=== PATIENT | male | born 1955 | race Caucasian/White ===

== ENCOUNTER 2023-05-21 05:30 | Inpatient (IN) | payer OTHER, SELFPAY ==
[2023-05-05 09:04] LABS: INR 1.04; PT 13.8 Sec (11.4-14.6)
[2023-05-05 09:05] LABS: APTT 29.8 Sec (23.4-35.0)
[2023-05-05 09:07] LABS: Urine Albumin Negative (Neg - Trace); Urine Bilirubin Negative (Negative); Urine Character Clear (Clear); Urine Color Yellow; Urine Glucose Negative (Negative); Urine Ketone Negative (Negative); Urine Leukocyte Negative (Negative); Urine Nitrite Negative (Negative); Urine Occult Blood Negative (Negative); Urine Specific Gravity 1.015 (<1.030); Urine Urobilinogen Negative (Neg - 1+)
[2023-05-05 09:09] LABS: % Basophils 0.3 % (0-2); % Eosinophils 2.2 % (0-6); % Immature Granulocytes 0.3 % (0-0.5); % Lymphocytes 24.9 % (20.5-51.1); % Monocytes 8.8 % (1.7-9.3); % Neutrophils 63.5 % (42.2-75.2); Absolute Eosinophils 0.2 10^3/uL (0-0.7); Absolute Lymphocytes 1.8 10^3/uL (1.2-3.4); Absolute Monocytes 0.6 10^3/uL (0.1-0.6); Absolute Neutrophils 4.5 10^3/uL (1.4-6.5); Hematocrit 38.1 % (39.0-52.0); Hemoglobin 12.8 g/dL (13.0-18.0); Mean Corp Hgb Conc. 33.6 g/dL (33.0-37.0); Mean Corpuscular Hgb 31.3 pg (27.0-31.0); Mean Corpuscular Volume 93.2 fL (80.0-94.0); Mean Platelet Volume 10.2 fL (7.4-10.4); Nucleated Red Blood Cells % 0 % (-); Platelet Count 308 10^3/uL (130-400); Red Blood Cell Count 4.09 10^6/uL (4.70-6.10); Red Cell Dist. Width 13.7 % (11.5-14.5); White Blood Cell Count 7.2 10^3/uL (4.8-10.8)
[2023-05-05 09:20] LABS: ALT (SGPT) 26 U/L (0-50); AST (SGOT) 28 U/L (17-59); Albumin 4.4 g/dl (3.5-5.0); Alkaline Phosphatase 39 U/L (38-126); Blood Urea Nitrogen 33 mg/dl (9-20); Calcium 9.9 mg/dl (8.4-10.2); Carbon Dioxide 26 mmol/L (22-30); Chloride 105 mmol/L (98-107); Direct Bilirubin 0.6 mg/dl (0.0-0.4); Glucose 124 mg/dl (70-99); Potassium 4.8 mmol/L (3.5-5.1); Sodium 136 mmol/L (135-145); Total Bilirubin 0.7 mg/dl (0.2-1.3); eGFR 46.64
--- NOTE | 2023-05-05 09:53 | CM ---
Chart reviewed. Met with the patient and in PAT. Reviewed preoperative and postoperative instructions and restrictions, along with showering guidelines. Gave patient 2 soaps. Patient is agreeable to a home visit by CT Transitional RN.
Patient is independent of ADLS, lives with his in a 2 STH, 2 IOANA, 0 DME. Patient uses [facility] in [place]. Plan is for the patient to return home with CT Transitional RN.
[2023-05-05 10:00] LABS: Glycohemoglobin (HgbA1c) 6.3 % (4.0-5.6)
[2023-05-05 11:24] VITALS: BMI 34.4
[2023-05-21] VITALS (8 sets, daily range): BP systolic 77–157; BP diastolic 48–68; BMI 33.8
[2023-05-21] MEDS: PROTONIX 40 MG PO (06:09)
[2023-05-21] MEDS: MAGNESIUM OXIDE 500 MG PO (06:10)
[2023-05-21] MEDS: BACTROBAN 2% OINTMENT 1 APPLIC NASAL ×2 (06:10→21:43)
--- NOTE | 2023-05-21 08:30 | PTCARENOTE ---
0815, pt transfered to [facility] in bed. Wedding ring removed by CT PA prior and given to patients . Consent on chart. Pre op meds administered by retail shift leader RN previously.
--- NOTE | 2023-05-21 09:02 | CM ---
Patient in OR today for planned CABG.
Reviewed initial assessment. Pt. resides in a private, 2 story home with spouse. Functionally, patient is indep. w/ ADLs, mobility.
Anticipated DC plan is for home with CT Transitional Care RN.
Will follow for DC planning needs.
[2023-05-21 09:20] LABS: ACT+ - POC 87 Seconds (82-134)
[2023-05-21 09:23] LABS: B.E. - POC -2.4 mmol/L; Glucose - POC 89 mg/dl (65-99); HCO3 - POC 23 mmol/L (21-29); Hematocrit - POC 36 % PCV (42-52); Hemodilution- POC No; Hemoglobin Calculated - POC 12.4; Ionized Calcium - POC 1.28 mmol/L (1.12-1.27); O2 Saturation %Calculated-POC 95.4 5 (92-96); PCO2 - POC 43 mmHg (35-45); PO2 - POC 83 mmHg (80-100); Potassium - POC 4.2 mmol/L (3.6-5.0); Sodium - POC 142 mmol/L (135-145); pH - POC 7.34 (7.35-7.45)
[2023-05-21 09:31] LABS: Urine Albumin Negative (Neg - Trace); Urine Bilirubin Negative (Negative); Urine Character Slightly Cloudy (Clear); Urine Color Yellow; Urine Glucose Negative (Negative); Urine Ketone Negative (Negative); Urine Leukocyte Negative (Negative); Urine Nitrite Negative (Negative); Urine Occult Blood Negative (Negative); Urine Specific Gravity 1.015 (<1.030); Urine Urobilinogen Negative (Neg - 1+)
[2023-05-21] MEDS: NSS 500 IV (12:00)
[2023-05-21 12:14] LABS: ACT+ - POC 503 Seconds (82-134)
[2023-05-21 12:51] LABS: B.E. - POC -0.7 mmol/L; Glucose - POC 92 mg/dl (65-99); HCO3 - POC 25 mmol/L (21-29); Hematocrit - POC 29 % PCV (42-52); Hemodilution- POC Yes; Hemoglobin Calculated - POC 9.8; Ionized Calcium - POC 1.12 mmol/L (1.12-1.27); PCO2 - POC 45 mmHg (35-45); PO2 - POC 382 mmHg (80-100); Potassium - POC 5.2 mmol/L (3.6-5.0); Sodium - POC 138 mmol/L (135-145); pH - POC 7.35 (7.35-7.45)
[2023-05-21 12:51] LABS: ACT+ - POC 492 Seconds (82-134)
[2023-05-21 13:07] LABS: ACT+ - POC 571 Seconds (82-134)
[2023-05-21 13:19] LABS: B.E. - POC -1.8 mmol/L; Glucose - POC 104 mg/dl (65-99); HCO3 - POC 23 mmol/L (21-29); Hematocrit - POC 29 % PCV (42-52); Hemodilution- POC Yes; Hemoglobin Calculated - POC 9.9; Ionized Calcium - POC 1.14 mmol/L (1.12-1.27); PCO2 - POC 41 mmHg (35-45); PO2 - POC 431 mmHg (80-100); Sodium - POC 138 mmol/L (135-145); pH - POC 7.37 (7.35-7.45)
[2023-05-21 13:21] LABS: ACT+ - POC 504 Seconds (82-134)
[2023-05-21 13:50] LABS: B.E. - POC -2.5 mmol/L; Glucose - POC 114 mg/dl (65-99); HCO3 - POC 22 mmol/L (21-29); Hematocrit - POC 29 % PCV (42-52); Hemodilution- POC Yes; Hemoglobin Calculated - POC 9.7; Ionized Calcium - POC 1.13 mmol/L (1.12-1.27); O2 Saturation %Calculated-POC 99.9 5 (92-96); PCO2 - POC 37 mmHg (35-45); PO2 - POC 338 mmHg (80-100); Potassium - POC 5.1 mmol/L (3.6-5.0); Sodium - POC 137 mmol/L (135-145); pH - POC 7.38 (7.35-7.45)
[2023-05-21 13:52] LABS: ACT+ - POC 492 Seconds (82-134)
[2023-05-21 14:13] LABS: ACT+ - POC 595 Seconds (82-134)
[2023-05-21 14:24] LABS: B.E. - POC -4.6 mmol/L; Glucose - POC 134 mg/dl (65-99); HCO3 - POC 21 mmol/L (21-29); Hematocrit - POC 28 % PCV (42-52); Hemodilution- POC Yes; Hemoglobin Calculated - POC 9.5; Ionized Calcium - POC 1.11 mmol/L (1.12-1.27); O2 Saturation %Calculated-POC 99.9 5 (92-96); PCO2 - POC 40 mmHg (35-45); PO2 - POC 378 mmHg (80-100); Sodium - POC 138 mmol/L (135-145); pH - POC 7.33 (7.35-7.45)
[2023-05-21 14:26] LABS: ACT+ - POC 576 Seconds (82-134)
[2023-05-21 15:29] LABS: ACT+ - POC 96 Seconds (82-134)
[2023-05-21 15:31] LABS: B.E. - POC -7.7 mmol/L; Glucose - POC 108 mg/dl (65-99); HCO3 - POC 19 mmol/L (21-29); Hematocrit - POC 28 % PCV (42-52); Hemodilution- POC Yes; Hemoglobin Calculated - POC 9.5; Ionized Calcium - POC 1.21 mmol/L (1.12-1.27); O2 Saturation %Calculated-POC 99.7 5 (92-96); PCO2 - POC 45 mmHg (35-45); PO2 - POC 226 mmHg (80-100); Potassium - POC 4.2 mmol/L (3.6-5.0); Sodium - POC 142 mmol/L (135-145); pH - POC 7.24 (7.35-7.45)
--- NOTE | 2023-05-21 16:13 | CON.INTV ---
Consultation
Consultation Request
Date/Time Consultation Requested: 05-21-2023
Date/Time Consultation Performed: 05-21-2023 1610
Requesting Provider: Sarika Boyer PA-C
Performing Provider: Dr. Doe
Reason for Consultation: s/p CABG
Medical History
-
Chief Complaint: Elective CABG
History of Present Illness:
67-year-old male never smoker with a past medical history of DVT s/p IVC filter with subsequent removal 15 years later (2019), CAD s/p coronary stents, CKD, DM type II, venous insufficiency and hyperlipidemia who presents with elective CABG.
Patient follows with Dr. Nichols as an outpatient, last visit on 04/29/2023. Patient endorses fatigue with reduced exercise tolerance. After his office visit, a CT chest was done preoperatively which showed severe coronary artery calcifications with
calcification along the aorta without an aortic aneurysm. Carotid ultrasound showed less than 50% stenosis in the right and left ICA. DVT study done on 05/13/2023 showed a chronic nonocclusive DVT in the right popliteal and left femoral veins.
Patient came in today and underwent CABG x 4. Postoperative PHOEBE showed normal biventricular function without regional WMA and no significant valvular pathology. Patient transferred to the CVICU in stable condition with no immediate complications
seen. Hog Ringer has pulmonary service now consulted for additional recommendations.
When I saw the patient he was still intubated, on SIMV 16/600/40%/5, breathing at 16bpm, VTe: 541cc and PIP 24. BP via left radial A-line was 113/56, PAP 33/19, O2 saturation 94%. He was on Cardene drip at 2.5 mg/h, and Precedex drip at
0.7mcg/kg/hr. he has 2 mediastinal chest tubes and a right and a left pleural chest tube. He awakens to verbal stimuli. He is in no acute distress.
PMHx: DM type II, hypertension, history of DVT, CKD III, hepatic steatosis, GERD, hyperlipidemia, venous insufficiency and chronic back pain
PSHx: Cholecystectomy, s/p coronary stents (2016), bilateral L4 TFESI No SED, IVC filter placed in 2004 -removed 2019; basal cell carcinoma removal
Past Medical History
Past Medical History: Other (Above as per HPI)
Past Surgical History: Other (Above as per HPI)
Social History
Tobacco: Non-smoker
Alcohol: Occasional
Drug: None
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
Family History
Family History: CAD (Father, mother and brothers x 2) and Cancer (Brother: Lung cancer)
Allergies / Home Medications
Allergies
Allergy/AdvReac Type Severity Reaction Status Date / Time
atenolol Allergy Intermediate dizziness, Verified 04/30/23 10:11
'ROOM
SPINNING'
Beta-Blockers Allergy dizziness Verified 04/30/23 10:11
(Beta-Adrenergic Bloc
Home Medications
Medication Instructions Recorded Confirmed Last Taken Type
fenofibric acid (choline) 135 mg 135 mg PO DAILY High Cholesterol 09/01/14 05/21/23 1 Day Ago History
capsule,delayed release ~05/20/23
nitroglycerin 0.4 mg sublingual 0.4 mg sublingual [id number] PRN 09/01/14 05/21/23 04/20/16 Rx
tablet chest pain #30 tabs
coenzyme Q10 200 mg capsule (Co 200 mg PO DAILY Supplement 06/04/16 05/21/23 1 Day Ago History
Q-10) ~05/20/23
insulin degludec 100 unit/mL (3 72 unit SQ DAILY Diabetes 06/04/16 05/21/23 1 Day Ago History
mL) subcutaneous pen (Tresiba ~05/20/23
FlexTouch U-100 insulin)
magnesium 250 mg tablet 250 mg PO DAILY Electrolyte 06/04/16 05/21/23 1 Day Ago History
Repletion ~05/20/23
lfozdvzg-wd-ahtck 300 mcg-K 60 1 ea PO DAILY Supplement 06/04/16 05/21/23 1 Day Ago History
mcg-lycop 600 mcg-lutein 300 mcg ~05/20/23
tablet (Centrum Anjel Men)
pioglitazone 30 mg tablet 30 mg PO DAILY Diabetes 06/04/16 05/21/23 1 Day Ago History
~05/20/23
insulin aspart U-100 100 unit/mL 6 unit SC AC Diabetes ##0 06/23/18 05/21/23 1 Day Ago History
(3 mL) subcutaneous pen (Novolog ~05/20/23
FlexPen U-100 Insulin aspart)
nifedipine 90 mg tablet,extended 90 mg PO DAILY Blood Pressure ##0 06/23/18 05/21/23 1 Day Ago History
release 24 hr ~05/20/23
apixaban 5 mg tablet (Eliquis) 5 mg PO BID Blood Clot 04/22/23 05/21/23 3 Days Ago History
Prevention/Tx ~05/18/23
lisinopril 20 1 tab PO BID Blood Pressure 04/22/23 05/21/23 05/18/23 20:00 History
mg-hydrochlorothiazide 12.5 mg
tablet
rosuvastatin 40 mg tablet 40 mg PO QPM High Cholesterol 04/22/23 05/21/23 05/20/23 20:00 History
semaglutide 1 mg/dose (4 mg/3 mL) 1 mg SC HAIRSTON Diabetes 04/22/23 05/21/23 05/17/23 08:00 History
subcutaneous pen injector (Ozempic)
vitamin E 400 unit tablet 800 unit PO DAILY Supplement 04/22/23 05/21/23 1 Day Ago History
~05/20/23
aspirin 81 mg tablet,delayed 81 mg PO DAILY Blood Clot 05/21/23 05/21/23 1 Day Ago History
release Prevention/Tx ~05/20/23
isosorbide mononitrate 30 mg 30 mg PO DAILY Blood Pressure 05/21/23 05/21/23 1 Day Ago History
tablet,extended release 24 hr ~05/20/23
metformin 1,000 mg tablet 1,000 mg PO DAILY Diabetes 05/21/23 05/21/23 05/19/23 20:00 History
pantoprazole 40 mg tablet,delayed 40 mg PO DAILY Gastrointestinal 05/21/23 05/21/23 1 Day Ago History
release Issue ~05/20/23
Review of Systems
-
Unable to Obtain full review of systems at this time due to: Patient Intubation
Vitals / Labs / Diagnostic Testing
Vital Signs
Temp Pulse Resp BP Pulse Ox
97.6 F 88 16 157/66 99
05/21/23 05:59 05/21/23 05:59 05/21/23 05:59 05/21/23 05:59 05/21/23 05:59
Diagnostic Testing:
Physical Exam
-
HEENT: Normocephalic and Anicteric
Cardiovascular: S1/S2 and Peripheral Edema (negative)
Respiratory: Wheeze (Negative), Rhonchi (Negative) and Other (Mechanical breath sounds bilaterally)
GI: Soft, Non Distended and Non Tender
Neurology: Tremors (Negative) and Other (Sedated, awakens to stimuli)
Skin: Warm, Dry and Other (chronic venous stasis dermatitis seen mainly in RLE)
General: Other (Sedated on mechanical ventilation)
Assessment
-
Assessment: 67-year-old male never smoker with a past medical history of DVT s/p IVC filter with subsequent removal 15 years later (2019), CAD s/p coronary stents, CKD, DM type II, venous insufficiency and hyperlipidemia who presents with elective
CABG. Patient follows with Dr. Nichols as an outpatient, last visit on 04/29/2023. Patient endorses fatigue with reduced exercise tolerance. After his office visit, a CT chest was done preoperatively which showed severe coronary artery
calcifications with calcification along the aorta without an aortic aneurysm. Carotid ultrasound showed less than 50% stenosis in the right and left ICA. DVT study done on 05/13/2023 showed a chronic nonocclusive DVT in the right popliteal and left
femoral veins. Patient came in today and underwent CABG x 4. Postoperative PHOEBE showed normal biventricular function without regional WMA and no significant valvular pathology. Patient transferred to the CVICU in stable condition with no immediate
complications seen. Hog Ringer has pulmonary service now consulted for additional recommendations.
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
Impression:
#Multivessel CAD s/p multiple prior stents now with CABG x 4 (POD #0)
#Acute on chronic anemia (baseline Hb: Approximately 13)
#Chronic DVT bilaterally -right popliteal and left femoral vein
#CKD
Plan:
Ventilator settings reviewed --> if PTX enlarges then may need to drop PEEP to zero. Monitor for air leak in chest tube
FiO2 will be weaned --> may want to keep elevated to help resorb PTX, at least until tomorrow's CXR is done
Minute ventilation will be adjusted
Arterial blood gases will be monitored
Spontaneous breathing trial will be attempted with hopeful extubation after anesthesia/sedation wear off
Pulmonary artery catheter parameters will be followed
Pressors/antihypertensive/inotropes/diuretics will be provided as needed
Monitor chest tube output
Monitor hemoglobin
Monitor platelet count and coags
Transfuse blood product if needed
CT surgery following chest tubes
Monitor blood sugar
Insulin drip per protocol
Aspiration precautions
VAP prevention protocol
DVT prophylaxis
Early nutrition
Early mobilization
Critical care statement (patient seen and evaluated on 05/21/2023): A total of 46 minutes of critical care time was provided for this patient today. This includes management of ventilator, spontaneous breathing trial, arterial blood gases, pressors,
of unstable vital signs, evaluation of the patient at bedside, reviewing the patient's pertinent medical records including radiographs, microbiology, laboratory evaluations, and discussion with primary team and critical care nursing.
Data:
CXR 05-21-2023:
1. � Endotracheal tube, bilateral pleural chest tubes, and a pulmonary arterial catheter in place following CABG surgery.
2. � Suspected SMALL RIGHT APICAL PNEUMOTHORAX (less than 10% of the lung volume).
3. � Mild to moderate postoperative atelectasis in the lower lobes.
4. � Mild to moderate elevation of the right hemidiaphragm.
--- NOTE | 2023-05-21 16:21 | W.CVOR.SURPR ---
CVOR Surgeon Immed Pre Op
-
I have examined this patient prior to performance of the scheduled procedure.
The patient's condition is unchanged from the time of the dictated/written History and
Physical and the patient is able to undergo the scheduled procedure.
--- NOTE | 2023-05-21 16:22 | W.IMMPOSTOP ---
Addendum entered and electronically signed by Keyur Nichols MD 05/21/23 17:38:
Dictated: [id number]
Original Note:
Surgical Immed Post Op Note
-
CARDIAC SURGERY OPERATIVE NOTE:
Preoperative Dx:
Multivessel CAD s/p multiple prior stents
Postoperative Dx:
Same
Procedures:
1) Median sternotomy
2) Takedown of GILLIAN (narrowed pedicle)
3) Takedown of ALVARO (skeletonized)
4) Endoscopic w/ conversion to open LLE GSV harvest/prep
5) CABG x 4 (GILLIAN to D1, ALVARO to R PLB, sGSV to OM1/OM2)
Surgeon:
Keyur Nichols M.D.
Assistants:
Sarika Boyer P.A.-C.; senior underwriting assistant throughout, [id number] harvest of LLE GSV
Stephie Colvin-C.; assisted w/ LLE GSV harvest/prep; closure of LLE incisions
Anesthesia:
Abiodun Ojeda M.D. and Davis PhillipsN.Merry.
Perfusion:
Selma Ahn C.C.P. and Katy Anderson CSawyerC.P.
XC: 118min, CPB: 161min
Findings:
GILLIAN was healthy appearing conduit w/ very brisk blood flow (ELD 3.0mm); thin walled
ALVARO was healthy appearing conduit w/ very brisk blood flow (ELD 3.0mm); thin walled
GSV was largely a poor conduit; there was a reasonable length of satisfactory vein to accomplish the grafts to the OM branches in sequential fashion, and a lower quality segment that may have be acceptable for the D1 bypass
The LAD was visible on the epicardial surface. The two prior LAD stents were visible through the wall of the vessel. The segment of LAD between the stents (~1cm) was profoundly calcified and not amenable to bypass, the apical LAD was likewise
profoundly calcified and not amenable to bypass
The D1 was visible on the epicardial surface. The prior D1 stent was visible through the wall of the vessel. The vessel distal to the stent had moderately dense, scattered calcifications. A spot amenable to bypass was able to be identified. ELD
at coronary arteriotomy was 1.75mm
OM1 and OM2 were both visible on the epicardial surface. These vessels both had scattered calcifications, but were both very reasonable surgical targets w/ ELD 2.25mm and 2.75mm respectively.
The distal RCA proximal and distal to the crux was circumferentially calcified and not amenable to bypass. The PDA was a small vessel (est. 1.25mm or less). The R PLB was a reasonable sized vessel w/ moderated dense scattered calcifications. It
had an ELD of 1.65mm.
The ALVARO was brought through a lateral pericardiotomy & reached the RPLB in a tension free manner
On initial removal of cross-clamp/inspection of distal coronary targets, there was new bleeding at the ALVARO-RPLB anastomosis. I attempted to place one additional suture that resulted in improved, but not ideal, hemostasis. Given that the
anastomosis was hemostatic intially, I opted to re-establish cardioplegic arrest, takedown & redo this anastomosis. On inspection a anastomotic suture had torn through the RPLB and the ALVARO. I extended the arteriotomy slightly, and resected the
torn section of ALVARO. I re-performed the anastomosis and was quite satisfied with its completed appearance.
POST-PHOEBE: Normal biventricular function w/o RWMA. No sig valvular pathology
Implants:
7 sternal wires
Sternal 'X' plate x 1
Sternal 'square' plates x 2
8 - 14mm screws
4 - 12mm screws
4 - 10mm screws
CT x 4 (B/L pleural, inferior mediastinal, superior mediastinal)
Epicardial V-wire x 1
Complications:
No significant complications
Transfusions:
None
Condition:
72 sinus (ST 0.5/0.2). 111/62. 46/29. CVP: 24. CO/CI: 5.4/2.2. 99%
GTTS: precedex 0.7, insulin 0.5
Stable/guarded to CVICU
[2023-05-21] MEDS: STERILE WATER FOR INJECTION 16 ML IV ×2 (16:45)
[2023-05-21] MEDS: ZINACEF 1500 MG IV ×2 (16:45)
--- NOTE | 2023-05-21 16:45 | PTCARENOTE ---
CABG x 4 JOSEPH/DELICIA/Left leg svg. 1st call 1545. No blood products. Temp epicardial v wire to medtronic box. Usual lines. chest tube x 4 (2 meds/R and L pleural) Insulin gtt/precedex. Out of cvor at 1645. No blood product given. Cardene at 2.5 to 5.
NSR with 1st degree avb. V wire for backup 40bpm/10ma. See flowrecord for remaining assessments.
[2023-05-21 16:53] LABS: Glucose - Point of Care 116 mg/dl (70-99)
[2023-05-21 17:06] LABS: B.E. -2.9 mmol/L; Ionized Calcium 1.22 mMOL/L (1.15-1.33); O2 Saturation % 98.2 % (94-98); PCO2 51 mmHg (35-48); PO2 99 mmHg (83-108); Potassium 4.9 mMOL/L (3.5-5.1); Sodium 139 mMOL/L (136-145); pH 7.28 (7.35-7.45)
[2023-05-21 17:09] LABS: Hematocrit 26.1 % (39.0-52.0); Hemoglobin 9.2 g/dL (13.0-18.0); Platelet Count 110 10^3/uL (130-400)
--- NOTE | 2023-05-21 17:15 | PTCARENOTE ---
[place], CT surgery handle machine operator, aware of respiratory acidosis on initial abg: simv RATE INCREASED FROM 12 TO 16.
[2023-05-21 17:17] LABS: APTT 29.4 Sec (23.4-35.0); INR 1.45; PT 17.9 Sec (11.4-14.6)
[2023-05-21 17:24] LABS: Blood Urea Nitrogen 25 mg/dl (9-20); Estimated Creatinine Clearance 69 ml/min; Glucose 106 mg/dl (70-99); Magnesium 3.5 mg/dl (1.6-2.3)
--- NOTE | 2023-05-21 17:48 | W.PN.CD ---
Addendum entered and electronically signed by Jesus Cochran MD 05/21/23 18:02:
I saw and examined the patient.
The ANESTHESIA TECH's note was reviewed and I agree with the note.
post op patietn remains vented. Otherwise stable. In NSR
- continue post op care
Original Note:
Today's Communication / Plan
-
Post-op monitoring and care with weaning of drips and vent as tolerated per CT surgery/CVIXU protocol
Impression / Plan
-
67 y/o male (patient of Dr. Chen) with HTN, HLD, DM2, DVT/PE on Eliquis, and Multivessel CAD (with history of stenting) who is now s/ CABG.
Multivessel CAD:
-CABG x 4 (GILLIAN to D1, ALVARO to R PLB, sGSV to OM1/OM2) with Dr. Nichols 05/21/23
-remains intubated/sedated
-on nicardipine drip
-da silva, CT's, pacer wire in place
-post-op EKG and tele show SR
-post-op CXR pending
-intra-op PHOEBE with normal LV function
-ASA, statin
HTN:
-monitor post-op
-currently on cardene as above
HLD:
-statin
DM:
-on insulin drip post-op per protocol
-monitor closely
Hx DVT/PE:
-hx of removed IVC filter per OP chart
-on Eliquis as OP; held for procedure- resume when safe per CT surgery
Physical Exam
Vital Signs/Labs
Vital Signs
Temp Pulse Resp BP Pulse Ox
97.2 F 75 12 157/66 96
05/21/23 17:31 05/21/23 17:31 05/21/23 17:31 05/21/23 05:59 05/21/23 17:31
05/20/23 05/21/23 05/22/23
06:59 06:59 06:59
Actual Weight 119.4 kg
05/21/23 16:55
PT 17.9 Sec (11.4-14.6) H 05/21/23 16:55
INR 1.45 05/21/23 16:55
APTT 29.4 Sec (23.4-35.0) 05/21/23 16:55
Magnesium 3.5 mg/dl (1.6-2.3) H 05/21/23 16:55
Physical Exam
Constitutional: No acute distress
Cardiovascular: Rhythm & rate is regular
Respiratory: Other (intubated/sedated)
Neuro/Psych: Other (intubated/sedated)
Other: Skin (midsternal incision dressing CDI)
Data Reviewed
-
Date of Service: May 21, 2023
EKG: Tracing Personally Visualized and interpreted (NSR) and Other (SR)
Labs: Labs Reviewed by me
[2023-05-21] MEDS: PRECEDEX 100 IV (18:09)
[2023-05-21 18:20] LABS: Glucose - Point of Care 121 mg/dl (70-99)
[2023-05-21] MEDS: NOVOLOG FLEXPEN SC ×2 (18:30→18:31)
[2023-05-21] MEDS: CRESTOR PO (18:32)
[2023-05-21] MEDS: PACERONE PO (18:32)
[2023-05-21] MEDS: TYLENOL PO ×2 (18:32→21:41)
[2023-05-21] MEDS: NEURONTIN PO (18:32)
[2023-05-21 18:45] LABS: B.E. -2.1 mmol/L; HCO3 23.2 mmol/L (21-28); O2 Saturation % 98.4 % (94-98); PCO2 41 mmHg (35-48); PO2 96 mmHg (83-108); pH 7.36 (7.35-7.45)
--- NOTE | 2023-05-21 19:05 | PTCARENOTE ---
Patient remains on ventilator simv setting and spontaneously awoke: nods head no to pain and nausea: follows simple commands and moves all extremities x 4 with equal strength bilaterally. PEARLA. NSR with 1st degree avb. Notified VALVE STEAMER to initiate a
CPAP wean trial: ABG at 1830 showed a fully corrected respiratory acidosis. CT surgical SOCIAL SCIENCE MANAGER aware of same.
[2023-05-21 19:31] LABS: Glucose - Point of Care 91 mg/dl (70-99)
--- NOTE | 2023-05-21 20:00 | PTCARENOTE ---
Pt received from anat RN. Walking rounds completed. Pt intubated s/p CVOR. Precedex infusing per protocol. CPOT score 0. RASS -1. Pt following commands. Able to move bilateral upper/lower extremities. 5/5 upper extremity strength equal
bilaterally. PERRLA/3mm. Pt SR on monitor w/ 1st degree heart block. HR 80s. Epicardial v-wires set to backup 40/10/2. [place] @48 cm. CVP 10-14. PAP 30's/15-20's. CVP and PAP zeroed and flushed. BP 100's/50s. Left radial a-line intact, zeroed and
flushed. CI 2.0, CO 4.88. Pt intubated. ETT 8.0, 23cm @ right lip. Pt breathing over vent. Transitioned to CPAP setting @1940 by respiratory therapist, 40%/5/5. POX 99%. Lung sounds audible anteriorly. Mediastinal CTx2 and R/L pleural CT's to -20
suction, no air leak/tidaling/crepitus, and output within normal limits. Temp sensing Pineda catheter draining yellow urine w/o difficulty. Abdomen soft/nontender. Hypoactive. Sternal Aquacel CDI. Left leg wrapped in ALEX bandage/ CDI. Left groin
intact, soft/nontender. Right 18 gauge PIV CDI w/ insulin infusing. Right IJ cordis w/ swan CDI. Glycemic protocol followed.
[2023-05-21 20:09] LABS: Glucose - Point of Care 99 mg/dl (70-99)
[2023-05-21 20:39] LABS: Hematocrit 27.4 % (39.0-52.0); Hemoglobin 9.7 g/dL (13.0-18.0); Platelet Count 134 10^3/uL (130-400)
[2023-05-21 20:40] LABS: Mixed Venous O2 Saturation 52.1 %
[2023-05-21 20:42] LABS: B.E. -2.1 mmol/L; HCO3 23.2 mmol/L (21-28); Ionized Calcium 1.21 mMOL/L (1.15-1.33); O2 Saturation % 98.5 % (94-98); PCO2 41 mmHg (35-48); PO2 102 mmHg (83-108); Potassium 5.5 mMOL/L (3.5-5.1); pH 7.36 (7.35-7.45)
[2023-05-21 20:58] LABS: Glucose - Point of Care 110 mg/dl (70-99)
[2023-05-21] MEDS: OFIRMEV 100 IV (21:38)
[2023-05-21] MEDS: SENOKOT-S PO (21:41)
[2023-05-21] MEDS: PEPCID 20 MG IV (21:48)
[2023-05-21] MEDS: NSS (PRESERVATIVE FREE) 8 ML IV (21:48)
--- NOTE | 2023-05-21 22:00 | PTCARENOTE ---
Repeat 4-hour labs drawn and sent. CPAP wean ABG drawn and sent. ABG results then reviewed w/ CVPA Scooter Diego. Order to extubate per [facility] Scooter Diego. Pt extubated by respiratory @2111 to 6 L NC w/o difficulty. POX 98%. Small, clear/thin
secretions suctioned after extubation. Pt c/o pain - see JUN.
[2023-05-21 22:16] LABS: Glucose - Point of Care 91 mg/dl (70-99)
[2023-05-21] MEDS: NEURONTIN 300 MG PO (22:38)
[2023-05-21] MEDS: PACERONE 200 MG PO (22:38)
[2023-05-21] MEDS: MORPHINE SULFATE 2 MG IV (23:15)
[2023-05-22] VITALS (30 sets, daily range): BP systolic 103–137; BP diastolic 44–117; PULSE 84; O2SAT 94; BMI 34.4
--- NOTE | 2023-05-22 | PTCARENOTE ---
Previous assessment unchanged. Pt SR on monitor w/ 1st degree heart block. HR 80s. BP 100-120's/ 40s. Levo infusing per protocol. Pt on 6 L NC. POX 98%. Mediastinal CTx2 and L/R pleural CT intact, to -20 suction, output within normal limits. Left
radial a-line maintained. Pineda catheter draining yellow urine w/o difficulty. Glycemic protocol followed. Pt c/o mild sternal pain - see MAR.
[2023-05-22 00:09] LABS: Glucose - Point of Care 97 mg/dl (70-99)
[2023-05-22] MEDS: ZINACEF 750 MG IV ×3 (00:32→16:10)
[2023-05-22] MEDS: STERILE WATER FOR INJECTION 8.30000000000000071 ML IV ×3 (00:32→16:11)
[2023-05-22] MEDS: ROXICODONE 10 MG PO ×3 (00:33→22:42)
[2023-05-22] MEDS: TYLENOL PO ×2 (00:33→16:11)
[2023-05-22] MEDS: LOW STRENGTH ASPIRIN 81 MG PO ×2 (00:39→08:02)
[2023-05-22 02:03] LABS: Glucose - Point of Care 106 mg/dl (70-99)
[2023-05-22] MEDS: TYLENOL 650 MG PO ×4 (03:49→20:31)
[2023-05-22 03:55] LABS: Glucose - Point of Care 85 mg/dl (70-99)
[2023-05-22 04:02] LABS: Hematocrit 28.3 % (39.0-52.0); Hemoglobin 9.5 g/dL (13.0-18.0); Mean Corp Hgb Conc. 33.6 g/dL (33.0-37.0); Mean Corpuscular Hgb 31.8 pg (27.0-31.0); Mean Corpuscular Volume 94.6 fL (80.0-94.0); Mean Platelet Volume 10.8 fL (7.4-10.4); Platelet Count 163 10^3/uL (130-400); Red Blood Cell Count 2.99 10^6/uL (4.70-6.10); Red Cell Dist. Width 13.5 % (11.5-14.5); White Blood Cell Count 9.5 10^3/uL (4.8-10.8)
--- NOTE | 2023-05-22 04:30 | PTCARENOTE ---
Previous assessment unchanged. Pt remains SR on monitor. HR 80s. BP 100-120s/40s. Levo infusing per protocol. Pt maintained on 6 L NC. POX 94-98%. Mediastinal CTx2 and right/left pleural CT's intact, to -20 suction, and output within normal limits.
Left radial a-line maintained. Pineda catheter draining yellow urine w/o difficulty. Glycemic protocol followed. Labs drawn and sent. EKG obtained. See MAR for medication administration.
[2023-05-22 04:44] LABS: Blood Urea Nitrogen 32 mg/dl (9-20); Calcium 8.3 mg/dl (8.4-10.2); Carbon Dioxide 21 mmol/L (22-30); Chloride 108 mmol/L (98-107); Estimated Creatinine Clearance 54 ml/min; Glucose 88 mg/dl (70-99); Potassium 4.7 mmol/L (3.5-5.1); Sodium 139 mmol/L (135-145); eGFR 40.49
--- NOTE | 2023-05-22 05:01 | W.PN.CT ---
Addendum entered and electronically signed by Keyur Nichols MD 05/22/23 13:25:
I saw and examined the patient.
The PA's note was reviewed and I agree with the note.
Comment:
POD#1 s/p CABG x 4 (GILLIAN to D1, sGSV to OM1/OM2, ALVARO to RPLB)
No major overnight events. Weaned OFF levo. Tm 100.3. 86 sinus. 116/46. 96% 2L. GTTS: insulin. CT: 2M: 150/230, 2P: 180/200. UO: 510+ overnight. Tolerating PO. Neuro: intact. 9.5>9.5<163; 32/1.8 (1.4; baseline 1.6). CXR: no sig
effusions, pulmonary edema.
- ASA/plavix, no BB (pt. intolerant), d/w cardiology ideal medication for BB/HR control, statin
- Will plan to D/C plavix and resume Eliquis on D/C
- Diuresis today
- Continue insulin gtt
- D/C SGC, D/C A-line, D/C da silva
- OOB/IS/ambulate later
Original Note:
Today's Communication / Plan
-
-pod #1
-no issues overnight
-CI 2.80, CO 6.83. Drips: Levo 2, Insulin 0.3
-CT output: 2 meds 150/230, 2 pleur 180/200 in 12/24 hrs
-deline
-continue insulin
-d/c Da Silva
-meds (ASA, Amio, Crestor). Consider Plavix. Not on BB d/t intolerance (dizziness)
-encourage IS, OOB
Assessment / Plan
-
-mv-CAD- s/p CABG x 4 (GILLIAN to D1, ALVARO to R PLB, sGSV to OM1/OM2); LLE EVH on 05/21/[address] Nichols, pod #1
-POST-PHOEBE: Normal biventricular function w/o RWMA.� No sig valvular pathology
-CAD - s/p LAD and Diag stents in 2014 and 2016
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
-IVC reconstruction with stent
-HTN/HLD
-DM II (HgA1c 6.3)
-CKD 3a (Cr 1.6 preop)
-Non-smoker
-Intolerance of BB (dizziness)
-Pre-existing 1st degree AVB
-Acute postop blood loss anemia - no active bleed, no transfusion
-Acute postop thrombocytopenia
-Acute postop atelectasis
Discussed patient care with: Nursing and Care Team
Subjective
Procedure
- s/p CABG x 4 (GILLIAN to D1, ALVARO to R PLB, sGSV to OM1/OM2); LLE EVH on 05/21/[address] Nichols
-
Date of Service: May 22, 2023
Objective Data
-
PT 17.9 Sec (11.4-14.6) H 05/21/23 16:55
INR 1.45 05/21/23 16:55
APTT 29.4 Sec (23.4-35.0) 05/21/23 16:55
Vital Signs
Vital Signs
Temp Pulse Resp BP Pulse Ox
100 F 84 16 111/47 95
05/22/23 01:00 05/22/23 01:00 05/22/23 01:00 05/21/23 22:38 05/22/23 01:00
CT Intake/Output/Weight
05/21/23 05/21/23 05/22/23
06:59 18:59 06:59
Intake Total 109.7 / 512.1 402.4 / 512.1
Output Total 175 / 825 650 / 825
Balance -65.3 / -312.9 -247.6 / -312.9
SaO2: 95
Physical Exam
-
General: Awake and AOx3
Cardiovascular: Regular rate & rhythm, No Murmurs and Rub
Respiratory: Decreased Breath Sounds
Sternum: Stable
Incision: Clean, Dry and Dressing Intact
Extremities: Other (trace foot edema b/l)
Data Reviewed
-
Lab Results: Results Reviewed
Medications: Active Meds Reviewed
Chest X-Ray: Report Reviewed and Image Reviewed
ECG: Report Reviewed and Image Reviewed
[2023-05-22 05:26] LABS: Glucose - Point of Care 87 mg/dl (70-99)
--- NOTE | 2023-05-22 05:45 | PTCARENOTE ---
Savage dc'd per CV[facility] order. Pt tolerated.
[2023-05-22 06:08] LABS: Glucose - Point of Care 100 mg/dl (70-99)
--- NOTE | 2023-05-22 06:30 | PTCARENOTE ---
Attempted to get pt OOB. Pt helped to edge of bed and to stand w/ assist x2. Pt stated he felt like 'he was going to pass out.' Pt helped back to bed. Vital signs stable.
[2023-05-22 06:58] LABS: Glucose - Point of Care 104 mg/dl (70-99)
--- NOTE | 2023-05-22 07:00 | PTCARENOTE ---
Bedside walking rounds report received. Patient seen on rounds resting in bed on 6L o2 per minute titrated down to 4l on rounds to maintain pulse ox sats > 90%. NSR with 1st degree avb on monitor. Temp epicardial v wire securd to medtronic box for
backup rate of 40bpm with an mA of 10. CT x 4 (2 meds/right and left pleural) to pleur evacs and -20cm wall suction. No air leak noted..Plan: DC left radial art line/dc da silva later this am. See flowrecord on remaining assessments
[2023-05-22] MEDS: DILAUDID 0.25 MG IV (07:54)
[2023-05-22] MEDS: BACTROBAN 2% OINTMENT 1 APPLIC NASAL ×2 (07:59→20:30)
[2023-05-22] MEDS: NOVOLOG FLEXPEN SC ×3 (07:59→18:18)
[2023-05-22] MEDS: NSS (PRESERVATIVE FREE) 8 ML IV ×2 (08:00→20:30)
[2023-05-22] MEDS: PEPCID 20 MG IV ×2 (08:01→20:30)
[2023-05-22] MEDS: NEURONTIN 300 MG PO ×3 (08:02→22:20)
[2023-05-22] MEDS: LASIX 40 MG IV (08:02)
[2023-05-22] MEDS: SENOKOT-S 1 TABLET PO ×2 (08:03→20:31)
[2023-05-22] MEDS: PACERONE 200 MG PO ×3 (08:03→22:20)
[2023-05-22] MEDS: KCL PO (08:04)
[2023-05-22 08:31] LABS: Glucose - Point of Care 112 mg/dl (70-99)
--- NOTE | 2023-05-22 08:38 | W.PN.CD ---
Today's Communication / Plan
-
-Extubated; clinically stable and doing relatively well.
-Remains in sinus rhythm on telemetry.
-Continue routine postoperative care as directed by CT Surgery.
Impression / Plan
-
Assessment/Plan:
67 y/o male (patient of Dr. Chen) with HTN, HLD, DM2, DVT/PE on Eliquis, and Multivessel CAD (with history of stenting) who is now s/ CABG.
Multivessel CAD:
-CABG x 4 (GILLIAN to D1, ALVARO to R PLB, sGSV to OM1/OM2) with Dr. Nichols 05/21/23
-Extubated; clinically stable and doing relatively well.
-Remains in sinus rhythm on telemetry.
-Continue routine postoperative care as directed by CT Surgery.
-Continue ASA and statin.
HTN:
-Controlled/stable.
-Continue current medication regimen.
HLD:
-Continue high-dose rosuvastatin.
DM:
-on insulin drip post-op per protocol
-monitor closely
Hx DVT/PE:
-hx of removed IVC filter per OP chart
-on Eliquis as OP; held for procedure- resume when safe per CT surgery
Subjective:
No major events overnight.
Physical Exam
Vital Signs/Labs
Vital Signs
Temp Pulse Resp BP Pulse Ox
99 F 78 16 122/67 94
05/22/23 06:00 05/22/23 08:20 05/22/23 07:00 05/22/23 08:00 05/22/23 08:20
05/21/23 05/22/23 05/23/23
06:59 06:59 06:59
Actual Weight 119.4 kg 121.5 kg
05/22/23 03:35
05/22/23 03:35
PT 17.9 Sec (11.4-14.6) H 05/21/23 16:55
INR 1.45 05/21/23 16:55
APTT 29.4 Sec (23.4-35.0) 05/21/23 16:55
Magnesium 3.0 mg/dl (1.6-2.3) H 05/22/23 03:35
Physical Exam
Constitutional: No acute distress and Comfortable
EENT: Anicteric
Cardiovascular: Rhythm & rate is regular, Pedal edema is absent, Systolic murmur absent and S1S2 is normal
Respiratory: Respiratory effort normal and Lungs clear to auscul.
GI: Soft
Neuro/Psych: AO x 3
Other: Skin (Warm, dry, intact)
Data Reviewed
-
Date of Service: May 22, 2023
EKG: Tracing Personally Visualized and interpreted (Telemetry: Sinus rhythm)
X-Ray/CT/US/MRI/NUC/PET: Discussed with Nurse
Medical Tests (PFT, Pathology etc): Discussed with Nurse and Discussed with Patient
Labs: Labs Reviewed by me
Critical Care Time (in minutes): 36
--- NOTE | 2023-05-22 09:19 | W.PN.ANS.POP ---
Anesthesia Post Operative
- Anesthesia Post Op Note
Vital Signs Stable-See Nursing Note: Yes
Airway Patent: Yes
Adequate Pain Control: Yes
Change in Mental Status: No
Current Postoperative Nausea & Vomiting: No
Anesthesia Complications: No
General Anesthetic Recall: No
Unplanned Admission: No
Post Op Hydration Adequate: Yes
[2023-05-22 10:35] LABS: Glucose - Point of Care 105 mg/dl (70-99)
[2023-05-22] MEDS: PLAVIX 75 MG PO (11:27)
--- NOTE | 2023-05-22 11:43 | CM ---
CM following for DC planning needs.
Patient is POD#1 from CABG.
Met w/ patient at bedside. Pt. reports that he is feeling well.
Reviewed DC plan for home w/ CT Transitional Care RN.
CM to follow for DC planning needs.
--- NOTE | 2023-05-22 12:00 | PTCARENOTE ---
No acute changes. Vitals stable. NSR with 1st degree avb. Temp epicardial v wires insulated and secured: [employer] box accessible in room.
[2023-05-22 13:00] LABS: Glucose - Point of Care 126 mg/dl (70-99)
[2023-05-22] MEDS: FLEXERIL 5 MG PO ×2 (13:03→20:32)
[2023-05-22 15:09] LABS: Glucose - Point of Care 214 mg/dl (70-99)
[2023-05-22] MEDS: NSS IV (16:09)
[2023-05-22 16:13] LABS: Glucose - Point of Care 267 mg/dl (70-99)
[2023-05-22 17:24] LABS: Glucose - Point of Care 214 mg/dl (70-99)
--- NOTE | 2023-05-22 17:56 | W.PN.INTV ---
Today's Communication / Plan
Recommendations
Up OOB as tolerated
Encourage incentive spirometer
Pain control
Wean off insulin drip with goal BG 140�180
Assessment
-
Assessment: 67-year-old male never smoker with a past medical history of DVT s/p IVC filter with subsequent removal 15 years later (2019), CAD s/p coronary stents, CKD, DM type II, venous insufficiency and hyperlipidemia who presents with elective
CABG. Patient follows with Dr. Nichols as an outpatient, last visit on 04/29/2023. Patient endorses fatigue with reduced exercise tolerance. After his office visit, a CT chest was done preoperatively which showed severe coronary artery
calcifications with calcification along the aorta without an aortic aneurysm. Carotid ultrasound showed less than 50% stenosis in the right and left ICA. DVT study done on 05/13/2023 showed a chronic nonocclusive DVT in the right popliteal and left
femoral veins. Patient came in today and underwent CABG x 4. Postoperative PHOEBE showed normal biventricular function without regional WMA and no significant valvular pathology. Patient transferred to the CVICU in stable condition with no immediate
complications seen. Radio Frequency Engineer has pulmonary service now consulted for additional recommendations.
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
Impression:
#Multivessel CAD s/p multiple prior stents now with CABG x 4 (POD #1)
#Acute on chronic anemia (baseline Hb: Approximately 13)
#Chronic DVT bilaterally -right popliteal and left femoral vein
#CKD
Plan:
PTX seen yesterday resolved now
Maintain SpO2 >90-94%
Right IJ cordis removal as per cardiothoracic surgery
Monitor chest tubes output
Monitor hemoglobin
Monitor platelet count and coags
Transfuse blood product if needed
CT surgery managing chest tubes
Monitor blood sugar
Insulin drip per protocol
Aspiration precautions
DVT prophylaxis
Early nutrition
Early mobilization
Critical care statement (patient seen and evaluated on 05/22/2023): A total of 41 minutes of critical care time was provided for this patient today. This includes management of ventilator, spontaneous breathing trial, arterial blood gases, pressors,
of unstable vital signs, evaluation of the patient at bedside, reviewing the patient's pertinent medical records including radiographs, microbiology, laboratory evaluations, and discussion with primary team and critical care nursing.
Data:
CXR 05-22-2023:
1. Postoperative appearance of the chest.
2. Interval removal of the endotracheal tube and [place]-Jeramie catheter.
CXR 05-21-2023:
1. � Endotracheal tube, bilateral pleural chest tubes, and a pulmonary arterial catheter in place following CABG surgery.
2. � Suspected SMALL RIGHT APICAL PNEUMOTHORAX (less than 10% of the lung volume).
3. � Mild to moderate postoperative atelectasis in the lower lobes.
4. � Mild to moderate elevation of the right hemidiaphragm.
Subjective Dataa
Subjective Data
Date of Service:
Date of Service: May 22, 2023
Chief Complaint: Radio Frequency Engineer Follow Up
Subjective:
Patient seen this morning. Sitting in chair. On insulin drip at 3 units/h. He is on nasal cannula at 4 L/min. Heart rate 77. He has chest pain at his postoperative site. He has 2 mediastinal chest tubes and a right/left pleural chest tube. No
acute events reported from overnight.
Review of Systems
General: Other (12 point ROS performed and is negative unless mentioned above.)
Objective Data
Data Reviewed
Vital Signs / I&O / Oxygen:
Vital Signs
Temp Pulse Resp BP Pulse Ox
98.3 F 77 18 125/58 92
05/22/23 15:53 05/22/23 17:15 05/22/23 15:53 05/22/23 17:00 05/22/23 17:15
Intake and Output
05/21/23 05/22/23 05/23/23
06:59 06:59 06:59
Intake Total 700.9 / 700.9 1281.1 / 1281.1
Output Total 1340 / 1340 1015 / 1015
Balance -639.1 / -639.1 266.1 / 266.1
SaO2 [CPAP/PSV] 98
SaO2 [SIMV] 16
SaO2 92
Nasal Cannula flow liters per 1.5
minute
Physical Exam
General: Comfortable
HEENT: Normocephalic and Anicteric
Cardiovascular: S1-S2 and Peripheral Edema (negative)
Respiratory: Wheeze (n), Crackles (posterior bibasilar), Rhonchi (n) and Chest Tube (x4)
GI: Soft and Non Distended
Neurology: Awake and Alert
Skin: Warm and Dry
Labs/Micro/Reports
Lab Data
05/22/23 03:35
05/22/23 03:35
Laboratory Results
05/21/23 05/21/23
18:16 20:31
pH 7.36 7.36
pCO2 41 41
pO2 96 102
HCO3 23.2 23.2
O2 Delivery Level
[2023-05-22] MEDS: CRESTOR 40 MG PO (18:19)
[2023-05-22] MEDS: NOVOLOG FLEXPEN 4 UNITS SC (18:22)
[2023-05-22 18:29] LABS: Glucose - Point of Care 189 mg/dl (70-99)
--- NOTE | 2023-05-22 18:30 | PTCARENOTE ---
patient has not voided in approx 6hr. Per bladder scan protocol, 118ml scanned in bladder. Marimar MUNGUIA aware of same. New orders received: will check BMP serum and follow bladde scan protocol. OOB in chair on 2l nasal canula. NSR
[2023-05-22 19:25] LABS: Blood Urea Nitrogen 46 mg/dl (9-20); Calcium 8.4 mg/dl (8.4-10.2); Carbon Dioxide 23 mmol/L (22-30); Chloride 100 mmol/L (98-107); Estimated Creatinine Clearance 43 ml/min; Glucose 141 mg/dl (70-99); Potassium 4.6 mmol/L (3.5-5.1); Sodium 133 mmol/L (135-145); eGFR 30.17
[2023-05-22] MEDS: NOVOLIN R INSULIN INFUSION 100 IV (19:26)
[2023-05-22 19:46] LABS: Glucose - Point of Care 138 mg/dl (70-99)
--- NOTE | 2023-05-22 20:30 | PTCARENOTE ---
Patient received OOB in chair watching television. Patient A+A+Ox3. No neurological deficits noted. No c/o headache, dizziness or lightheadedness. No s/s of respiratory distress. O2 at 2L via NC. SaO2 94%. Four chest tubes - Mediastinal x2
and Right and Left Pleural - Intact and patent - 5-20 ml red drainage - No air leak, tidaling or crepitus noted. Chest tube dressing intact. Sinus Rhythm. Heart rate 70's. Epicardial Temporary Pacemaker - VVI - V-Wire insulated. No c/o chest
pain, pressure or discomfort. Normoactive bowel sounds. No BM. No c/o nausea. No vomiting. No urge to void at this time. No c/o back or flank pain. Right I.J. Cordis - Saline flush 10ml/hr. Insulin gtt - Glycemic Protocol. Sternal Aquacell
dressing intact. Left leg - Aquacell x2 intact. Generalized edema. Positive, palpable pulses. Assessment as documented.
[2023-05-22] MEDS: ROXICODONE 5 MG PO (20:31)
[2023-05-22 21:14] LABS: Glucose - Point of Care 131 mg/dl (70-99)
[2023-05-22 22:06] LABS: Glucose - Point of Care 88 mg/dl (70-99)
[2023-05-22 23:21] LABS: Glucose - Point of Care 158 mg/dl (70-99)
[2023-05-23] VITALS (11 sets, daily range): BP systolic 119–160; BP diastolic 64–86; PULSE 82; O2SAT 85–91; BMI 34.7
[2023-05-23] MEDS: TYLENOL PO ×2 (00:04→13:33)
--- NOTE | 2023-05-23 00:30 | PTCARENOTE ---
Patient assisted to bed with assist x2 without difficulty. Patient now sleeping. Assessment as documented.
[2023-05-23 01:16] LABS: Glucose - Point of Care 117 mg/dl (70-99)
[2023-05-23 03:23] LABS: Glucose - Point of Care 97 mg/dl (70-99)
[2023-05-23 03:49] LABS: Hematocrit 25.5 % (39.0-52.0); Hemoglobin 8.9 g/dL (13.0-18.0); Mean Corp Hgb Conc. 34.9 g/dL (33.0-37.0); Mean Corpuscular Hgb 32.2 pg (27.0-31.0); Mean Corpuscular Volume 92.4 fL (80.0-94.0); Mean Platelet Volume 10.2 fL (7.4-10.4); Platelet Count 148 10^3/uL (130-400); Red Blood Cell Count 2.76 10^6/uL (4.70-6.10); Red Cell Dist. Width 13.9 % (11.5-14.5); White Blood Cell Count 8.6 10^3/uL (4.8-10.8)
[2023-05-23] MEDS: NSS 500 IV (04:00)
[2023-05-23] MEDS: TYLENOL 650 MG PO ×4 (04:01→19:38)
[2023-05-23] MEDS: ROXICODONE 5 MG PO ×2 (04:01→15:31)
[2023-05-23 04:13] LABS: Blood Urea Nitrogen 52 mg/dl (9-20); Calcium 8.1 mg/dl (8.4-10.2); Carbon Dioxide 27 mmol/L (22-30); Chloride 100 mmol/L (98-107); Estimated Creatinine Clearance 47 ml/min; Glucose 89 mg/dl (70-99); Potassium 4.3 mmol/L (3.5-5.1); Sodium 134 mmol/L (135-145); eGFR 33.66
--- NOTE | 2023-05-23 04:25 | W.PN.CT ---
Addendum entered and electronically signed by Keyur Nichols MD 05/23/23 09:45:
I saw and examined the patient.
The PA's note was reviewed and I agree with the note.
Comment:
POD#2 s/p CABG x 4
No major overnight events. Looks good, OOB to chair. Tm 98.9. 90 sinus. 143/69. 92% 2L. GTTS: insulin. CT: 2M: 70/125; 2P: 120/410 (SEROsang). UO: spontaneous, adequate. Tolerating PO. Neuro: intact. 8.6>8.9<148; 52/2.1 (from 2.3). CXR:
low lung volumes, tiny apical R PTX
- Maintain CTs today
- Pt. w/ intolerance to BB (dizziness?) previously
- Will D/W cardiology desired meds for HR/BP control
- ASA/plavix, statin - will transition to ASA/Eliquis on D/C
- Lasix today
- OOB/IS/ambulate
- OOB/IS/ambulate
Original Note:
Today's Communication / Plan
-
-pod #2
-no issues overnight
-Cr improving - 2.1 today (2.3 on 05/22 and 1.6 preop)
-follow UO and Cr
-CT output: 2 meds 45/100, 2 pleur 80/370 in 12/24 hrs
-meds (ASA, PLavix, Amio, Lasix, Crestor). No BB d/t intolerance. Plan is to d/c Plavix and re-start Eliquis at discharge (for hx b/l LE DVT/PE)
-encourage IS, OOB
Assessment / Plan
-
-mv-CAD- s/p CABG x 4 (GILLIAN to D1, ALVARO to R PLB, sGSV to OM1/OM2); LLE EVH on 05/21/[address] Nichols, pod #2
-POST-PHOEBE: Normal biventricular function w/o RWMA.� No sig valvular pathology
-CAD - s/p LAD and Diag stents in 2014 and 2016
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
-IVC reconstruction with stent
-HTN/HLD
-DM II (HgA1c 6.3)
-CKD 3a (Cr 1.6 preop)
-Non-smoker
-Intolerance of BB (dizziness)
-Pre-existing 1st degree AVB
-Acute postop blood loss anemia - no active bleed, no transfusion
-Acute postop thrombocytopenia
-Acute postop atelectasis
-JEWEL in setting of CKD
Discussed patient care with: Nursing and Care Team
Subjective
Procedure
- s/p CABG x 4 (GILLIAN to D1, ALVARO to R PLB, sGSV to OM1/OM2); LLE EVH on 05/21/[address] Nichols
-
Date of Service: May 23, 2023
Objective Data
-
Lab Results
05/23/23 03:36
05/23/23 03:36
PT 17.9 Sec (11.4-14.6) H 05/21/23 16:55
INR 1.45 05/21/23 16:55
APTT 29.4 Sec (23.4-35.0) 05/21/23 16:55
Vital Signs
Vital Signs
Temp Pulse Resp BP Pulse Ox
98.4 F 85 16 143/69 92
05/23/23 03:50 05/23/23 03:51 05/23/23 03:50 05/23/23 03:51 05/23/23 03:50
CT Intake/Output/Weight
05/22/23 05/22/23 05/23/23
06:59 18:59 06:59
Intake Total 591.2 / 700.9 1580.1 / 2195.2 615.1 / 2195.2
Output Total 1165 / 1340 1015 / 1350 335 / 1350
Balance -573.8 / -639.1 565.1 / 845.2 280.1 / 845.2
SaO2: 92
Physical Exam
-
General: Awake and AOx3
Cardiovascular: Regular rate & rhythm, No Murmurs and Rub
Respiratory: Rales (at bases b/l) and Decreased Breath Sounds
Sternum: Stable
Incision: Clean, Dry and Dressing Intact
Extremities: Other (trace edema b/l. LE chronic skin discoloration b/l)
Abdomen: soft, nontender, nondistended, + bowel sounds
Data Reviewed
-
Lab Results: Results Reviewed
Medications: Active Meds Reviewed
Chest X-Ray: Report Reviewed and Image Reviewed
ECG: Report Reviewed and Image Reviewed
[2023-05-23 05:25] LABS: Glucose - Point of Care 115 mg/dl (70-99)
--- NOTE | 2023-05-23 06:15 | PTCARENOTE ---
Patient A+A+Ox3. No neurological deficits noted. Patient given CHG bath and linens changed. Chest tube dressing changed. Patient OOB to chair with assist x2. Standing scale weight 122.5 kg. Patient with no c/o headache, dizziness or
lightheadedness. Patient voided 300 ml jeffery urine. Patient brushed teeth. Resting in chair watching television. Assessment/Interventions as documented.
[2023-05-23 07:22] LABS: Glucose - Point of Care 117 mg/dl (70-99)
--- NOTE | 2023-05-23 08:00 | PTCARENOTE ---
Assumed care of patient from shift foreman RN. AAO x 3 sitting up in the chair. Pain well managed. SR on monitor. Epicardial wire insulated. RT IJ cordis with KVO. 2 L NC pulse ox of 92%. IS 750, occasional moist productive cough noted. Mucinex
administered this am. Chest tubes x 4 to -20 cm suction. No air leak or crepitus noted. Abdomen obese, bowel sounds normal, passing flatus, appetite good. General trace edema appreciated. Pulses palpable.
[2023-05-23] MEDS: SENOKOT-S 1 TABLET PO ×2 (08:26→19:39)
[2023-05-23] MEDS: LOW STRENGTH ASPIRIN 81 MG PO (08:26)
[2023-05-23] MEDS: NEURONTIN 300 MG PO ×3 (08:26→22:17)
[2023-05-23] MEDS: MUCINEX 600 MG PO ×2 (08:26→19:38)
[2023-05-23] MEDS: PLAVIX 75 MG PO (08:26)
[2023-05-23] MEDS: BACTROBAN 2% OINTMENT 1 APPLIC NASAL ×2 (08:27→19:39)
[2023-05-23] MEDS: PACERONE 200 MG PO ×3 (08:27→22:17)
[2023-05-23] MEDS: NOVOLOG FLEXPEN 4 UNITS SC (08:27)
--- NOTE | 2023-05-23 09:05 | W.PN.INTV ---
Today's Communication / Plan
Recommendations
Up OOB as tolerated
Encourage incentive spirometer
Pain control
He is now off insulin gtt
Patient is now CVICU�telemetry status. Engine Assembly Supervisor/pulmonary service will now sign off. Please reconsult if there are any additional questions/concerns, or if respiratory issues develop.
Assessment
-
Assessment: 67-year-old male never smoker with a past medical history of DVT s/p IVC filter with subsequent removal 15 years later (2019), CAD s/p coronary stents, CKD, DM type II, venous insufficiency and hyperlipidemia who presents with elective
CABG. Patient follows with Dr. Nichols as an outpatient, last visit on 04/29/2023. Patient endorses fatigue with reduced exercise tolerance. After his office visit, a CT chest was done preoperatively which showed severe coronary artery
calcifications with calcification along the aorta without an aortic aneurysm. Carotid ultrasound showed less than 50% stenosis in the right and left ICA. DVT study done on 05/13/2023 showed a chronic nonocclusive DVT in the right popliteal and left
femoral veins. Patient came in today and underwent CABG x 4. Postoperative PHOEBE showed normal biventricular function without regional WMA and no significant valvular pathology. Patient transferred to the CVICU in stable condition with no immediate
complications seen. Engine Assembly Supervisor has pulmonary service now consulted for additional recommendations.
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
Impression:
#Multivessel CAD s/p multiple prior stents now with CABG x 4 (POD #2)
#Acute on chronic anemia (baseline Hb: Approximately 13)
#Chronic DVT bilaterally -right popliteal and left femoral vein
#JEWEL on CKD
Plan:
Maintain SpO2 >90-94%
Right IJ cordis removal as per cardiothoracic surgery
Monitor chest tubes output and monitor for air leaks
Monitor hemoglobin
Monitor platelet count and coags
Transfuse blood product if needed
CT surgery managing chest tubes
Monitor blood sugar
Renally dose all meds, trend sCr and UOP with goal >0.5cc/kg/hr
Aspiration precautions
DVT prophylaxis
Early nutrition
Early mobilization
Patient is now CVICU�telemetry status. Engine Assembly Supervisor/pulmonary service will now sign off. Thank you for allowing me to be involved in the care of this patient. Please reconsult if there are any additional questions or concerns, or if respiratory
issues develop.
(Patient seen and evaluated on 05/23/2023)
Data:
CXR 05-23-2023:
Discontinued mediastinal tube. The cardiomediastinal margins are stable.
New tiny right apical pneumothorax.
CXR 05-22-2023:
1. Postoperative appearance of the chest.
2. Interval removal of the endotracheal tube and [place]-Jeramie catheter.
CXR 05-21-2023:
1. � Endotracheal tube, bilateral pleural chest tubes, and a pulmonary arterial catheter in place following CABG surgery.
2. � Suspected SMALL RIGHT APICAL PNEUMOTHORAX (less than 10% of the lung volume).
3. � Mild to moderate postoperative atelectasis in the lower lobes.
4. � Mild to moderate elevation of the right hemidiaphragm.
Subjective Dataa
Subjective Data
Date of Service:
Date of Service: May 23, 2023
Chief Complaint: Engine Assembly Supervisor Follow Up
Subjective:
Patient seen today. Feels well. Has postoperative pain when he takes a deep breath. Pulling 1 L on incentive spirometer. Heart rate 80. Slept well overnight, currently on 2L/min NC. Chest tubes attached to Pleur-evac x2.
Review of Systems
General: Other (12 point ROS performed and is negative unless mentioned above.)
Objective Data
Data Reviewed
Vital Signs / I&O / Oxygen:
Vital Signs
Temp Pulse Resp BP Pulse Ox
98.6 F 83 18 136/67 92
05/23/23 11:51 05/23/23 11:51 05/23/23 11:51 05/23/23 08:13 05/23/23 11:55
Intake and Output
05/22/23 05/23/23 05/24/23
06:59 06:59 06:59
Intake Total 700.9 / 700.9 2222.2 / 2222.2 760 / 760
Output Total 1340 / 1340 1705 / 1705 530 / 530
Balance -639.1 / -639.1 517.2 / 517.2 230 / 230
SaO2 [CPAP/PSV] 98
SaO2 [SIMV] 16
SaO2 92
Nasal Cannula flow liters per 2
minute
Physical Exam
General: Comfortable
HEENT: Normocephalic and Anicteric
Cardiovascular: S1-S2 and Peripheral Edema (negative)
Respiratory: Wheeze (n), Crackles (posterior bibasilar), Rhonchi (n) and Chest Tube
GI: Soft and Non Distended
Neurology: Awake and Alert
Skin: Warm and Dry
Labs/Micro/Reports
Lab Data
05/23/23 03:36
05/23/23 03:36
[2023-05-23 09:22] LABS: Glucose - Point of Care 171 mg/dl (70-99)
[2023-05-23] MEDS: LASIX 40 MG IV (10:17)
[2023-05-23] MEDS: KCL 20 MEQ PO (10:17)
[2023-05-23] MEDS: FLEXERIL 5 MG PO ×2 (10:22→22:17)
[2023-05-23] MEDS: NORVASC 5 MG PO (11:20)
[2023-05-23] MEDS: GLUCOPHAGE 1000 MG PO (11:20)
[2023-05-23] MEDS: PEPCID IV (11:21)
[2023-05-23] MEDS: NSS (PRESERVATIVE FREE) IV (11:21)
[2023-05-23 11:30] LABS: Glucose - Point of Care 223 mg/dl (70-99)
[2023-05-23] MEDS: NOVOLOG FLEXPEN-MODERATE RESISTANCE 3 UNITS SC (11:30)
--- NOTE | 2023-05-23 12:00 | PTCARENOTE ---
Visiting with family in room, denies complaint. VSS. Insulin drip discontinued per HEALTH INSURANCE ASSESSOR order. Assessment other becker unchanged from prior
--- NOTE | 2023-05-23 16:57 | PTCARENOTE ---
Ambulated in hallway with RN, JENKINS noted, resolved once siting and rested. Deyanira given for pain management. Chest tubes maintained. VSS.
[2023-05-23 17:48] LABS: Glucose - Point of Care 308 mg/dl (70-99)
[2023-05-23] MEDS: NOVOLOG FLEXPEN-HIGH RESISTANCE 10 UNITS SC (17:48)
[2023-05-23] MEDS: CRESTOR 40 MG PO (17:56)
--- NOTE | 2023-05-23 20:57 | PTCARENOTE ---
Assumed care of patient at 1900. Patient found sleeping OOB in chair at time of assessment. Patient easily arousable, AOx4, follows commands appropriately, moves all extremities. Lung sounds are audible although noticeably diminished in bases
especially right, patient currently on 2L O2 via NC with saO2 92%. Patient has a moist nonproductive occasional cough. There are CTx4, 2xmed to one atrium, R/L pleural to one atrium with serosanguineous output. Heart sounds have a regular rate and
rhythm, there is a small rub audible on auscultation. V wires are in place, but insulated. Patient is NSR on the monitor. There is +1 generalized anasarca present, but patient has normal palpable pulses. Patient has a round obese abdomen with active
BS passing flatus but no BM yet. Patient is voiding clear yellow urine in urinal. There is a sternal incision with aquacell dressing that is CDI. A LLE incision approximated with surg adhesive and sutures that is AUBRIE. A L groin puncture that is
approx and HOME SERVICE CONSULTANT. Patient has a brown discoloration to both legs likely 2/2 PVD. Patient has R IJ cordis and 18G PIV in L arm. Patient has no c/o pain. VSS.
[2023-05-23] MEDS: LANTUS 0.200000000000000011 UNITS SC (22:18)
[2023-05-23 22:20] LABS: Glucose - Point of Care 230 mg/dl (70-99)
[2023-05-24] VITALS (11 sets, daily range): BP systolic 108–163; BP diastolic 57–77; BMI 35.0
[2023-05-24] MEDS: TYLENOL PO (00:42)
--- NOTE | 2023-05-24 00:42 | PTCARENOTE ---
Patient reassessed. VSS. Remains in NSR on the monitor. Patient received flexerilx1 for c/o muscle spasms. Minimal CT output. Patient is stable.
[2023-05-24] MEDS: TYLENOL 650 MG PO ×4 (03:47→19:54)
[2023-05-24 03:50] LABS: Hematocrit 23.8 % (39.0-52.0); Hemoglobin 8.4 g/dL (13.0-18.0); Mean Corp Hgb Conc. 35.3 g/dL (33.0-37.0); Mean Corpuscular Hgb 31.9 pg (27.0-31.0); Mean Corpuscular Volume 90.5 fL (80.0-94.0); Mean Platelet Volume 10.6 fL (7.4-10.4); Platelet Count 138 10^3/uL (130-400); Red Blood Cell Count 2.63 10^6/uL (4.70-6.10); Red Cell Dist. Width 13.4 % (11.5-14.5); White Blood Cell Count 7.3 10^3/uL (4.8-10.8)
[2023-05-24 04:25] LABS: Blood Urea Nitrogen 47 mg/dl (9-20); Calcium 7.8 mg/dl (8.4-10.2); Carbon Dioxide 27 mmol/L (22-30); Chloride 101 mmol/L (98-107); Estimated Creatinine Clearance 70 ml/min; Glucose 172 mg/dl (70-99); Potassium 4.5 mmol/L (3.5-5.1); Sodium 130 mmol/L (135-145); eGFR 54.75
--- NOTE | 2023-05-24 05:19 | PTCARENOTE ---
Patient reassessed. SBP noted to be in the 150s, but patient reporting no associated signs/symptoms. Notified CT CLERK OF COURT no new orders at this time. All other VSS. Patient is stable.
--- NOTE | 2023-05-24 05:25 | W.PN.CT ---
Addendum entered and electronically signed by Keyur Nichols MD 05/24/23 11:15:
I saw and examined the patient.
The PA's note was reviewed and I agree with the note.
Comment:
POD#3 s/p CABG x 4
No major overnight events. Tm 98.8. 81 sinus. 150/77. 92% 2L. GTTS: none. CT: removed this AM. UO: 1130/1890. Tolerating PO. Neuro: intact. 7.3>8.4<138; 47/1.4. Na 130 (From 134). CXR: less edema, no sig effusions.
- ASA/plavix, BB intolerance, changing from amlodipine to cardizem per cardiology recommendations, amio, crestor
- D/C R IJ
- Diuresis today
- Free water restriction
- OOB/IS/ambulate, wean to RA
Original Note:
Today's Communication / Plan
-
-pod #3
-no issues overnight
-Cr improving - 2.1->1.4 today�(2.3 on 05/22 and 1.6 preop)
-CT output: 2 meds 55/205, 2 pleur 25/75 in 12/24 hrs
-meds (ASA, PLavix, Amio, Lasix, Crestor). No BB d/t intolerance.
-encourage IS, OOB
Assessment / Plan
-
-mv-CAD- s/p CABG x 4 (GILLIAN to D1, ALVARO to R PLB, sGSV to OM1/OM2); LLE EVH on 05/21/[address] Nichols, pod #3
-POST-PHOEBE: Normal biventricular function w/o RWMA.� No sig valvular pathology
-CAD - s/p LAD and Diag stents in 2014 and 2016
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
-IVC reconstruction with stent
-HTN/HLD
-DM II (HgA1c 6.3)
-CKD 3a (Cr 1.6 preop)
-Non-smoker
-Intolerance of BB (dizziness)
-Pre-existing 1st degree AVB
-Acute postop blood loss anemia - no active bleed, no transfusion
-Acute postop thrombocytopenia
-Acute postop atelectasis
-JEWEL in setting of CKD
Subjective
Procedure
- s/p CABG x 4 (GILLIAN to D1, ALVARO to R PLB, sGSV to OM1/OM2); LLE EVH on 05/21/[address] Nichols
-
Date of Service: May 24, 2023
No significant overnight events
BP intermittency elevated
Objective Data
-
Lab Results
05/24/23 03:28
05/24/23 03:28
PT 17.9 Sec (11.4-14.6) H 05/21/23 16:55
INR 1.45 05/21/23 16:55
APTT 29.4 Sec (23.4-35.0) 05/21/23 16:55
Vital Signs
Vital Signs
Temp Pulse Resp BP Pulse Ox
98.6 F 81 18 154/77 92
05/24/23 03:55 05/24/23 03:55 05/24/23 03:55 05/24/23 03:55 05/24/23 03:55
CT Intake/Output/Weight
05/23/23 05/23/23 05/24/23
06:59 18:59 06:59
Intake Total 642.1 / 2222.2 760 / 1120 360 / 1120
Output Total 690 / 1705 1050 / 1580 530 / 1580
Balance -47.9 / 517.2 -290 / -460 -170 / -460
SaO2: 92
Physical Exam
-
General: Awake and Oriented
Cardiovascular: Regular rate & rhythm, No Murmurs and No Rub
Respiratory: Clear
Sternum: Stable
Incision: Clean, Dry and Intact
Extremities: No Edema
Data Reviewed
-
Lab Results: Results Reviewed
Medications: Active Meds Reviewed
Chest X-Ray: Report Reviewed
ECG: Report Reviewed
[2023-05-24 07:53] LABS: Glucose - Point of Care 224 mg/dl (70-99)
[2023-05-24] MEDS: LOW STRENGTH ASPIRIN 81 MG PO (08:46)
[2023-05-24] MEDS: PROTONIX 40 MG PO (08:46)
[2023-05-24] MEDS: NOVOLOG FLEXPEN-HIGH RESISTANCE 4 UNITS SC (08:46)
[2023-05-24] MEDS: NEURONTIN 300 MG PO ×3 (08:47→22:16)
[2023-05-24] MEDS: MUCINEX 600 MG PO ×2 (08:47→19:28)
[2023-05-24] MEDS: GLUCOPHAGE 1000 MG PO (08:47)
[2023-05-24] MEDS: SENOKOT-S 1 TABLET PO ×2 (08:47→19:28)
[2023-05-24] MEDS: LASIX 40 MG IV (08:47)
[2023-05-24] MEDS: KCL 20 MEQ PO (08:49)
[2023-05-24] MEDS: PLAVIX 75 MG PO (08:49)
[2023-05-24] MEDS: PACERONE 200 MG PO ×3 (08:49→22:16)
[2023-05-24] MEDS: BACTROBAN 2% OINTMENT 1 APPLIC NASAL ×2 (08:49→19:28)
[2023-05-24] MEDS: NORVASC 5 MG PO (08:49)
--- NOTE | 2023-05-24 09:00 | PTCARENOTE ---
Patient received from material handler 1st shift resting oob in chair, AAO X 3, pleasant and appropriate. NSR via cm, SaO2 @ 92% on 2lnc. RIJ Cordis w/kvo infusing. Epicardial V-wire, insulated to chest wall. Mediastinal chest tubes x 2, R and L pleural chest
tubes x 2 (to 2 separate pleuravacs), to -20cm suction w/no air leaks noted. All procedural sites stable. Patient updated to plan of care for the day, in agreement. See work list for full assessment and interventions performed.
--- NOTE | 2023-05-24 10:55 | W.PN.CD ---
Today's Communication / Plan
-
-
Cardiz CD 120 today
stop amlodipine 05/25 and start Cardiz CD 240/day
further BP adjust per Dr Sullivan as outpt
Impression / Plan
-
Assessment/Plan:
67 y/o male (patient of Dr. Chen) with HTN, HLD, DM2, DVT/PE on Eliquis, and Multivessel CAD (with history of stenting) who is now s/ CABG.
Multivessel CAD:
-CABG x 4 (GILLIAN to D1, ALVARO to R PLB, sGSV to OM1/OM2) with Dr. Nichols 05/21/23
-clinically stable and doing relatively well.
-Remains in sinus rhythm on telemetry.
-Continue routine postoperative care as directed by CT Surgery.
-Continue ASA and statin.
HTN:
-Not ideal control - I do not want to increase amlodipine due to tachyphylaxis
-plan to switch amlodipine to Cardizem CD - 120mg today; then tomorrow 240/day
HLD:
-Continue high-dose rosuvastatin.
DM:
-on insulin drip post-op per protocol
-monitor closely
Hx DVT/PE:
-hx of removed IVC filter per OP chart
-on Eliquis as OP; held for procedure- resume when safe per CT surgery
Subjective:
No major events overnight.
Physical Exam
Vital Signs/Labs
Vital Signs
Temp Pulse Resp BP Pulse Ox
98.6 F 93 17 163/63 92
05/24/23 08:55 05/24/23 08:55 05/24/23 08:55 05/24/23 08:49 05/24/23 10:07
05/23/23 05/24/23 05/25/23
06:59 06:59 06:59
Actual Weight 270 lb 1.06 oz 272 lb 7.861 oz
05/24/23 03:28
05/24/23 03:28
PT 17.9 Sec (11.4-14.6) H 05/21/23 16:55
INR 1.45 05/21/23 16:55
APTT 29.4 Sec (23.4-35.0) 05/21/23 16:55
Magnesium 3.0 mg/dl (1.6-2.3) H 05/22/23 03:35
Physical Exam
Cardiovascular: Rhythm & rate is regular
Respiratory: Respiratory effort normal
Data Reviewed
-
Date of Service: May 24, 2023
EKG: Tracing Personally Visualized and interpreted
Labs: Labs Reviewed by me
[2023-05-24] MEDS: NSS IV (11:31)
--- NOTE | 2023-05-24 11:40 | PTCARENOTE ---
Chest tubes d/c'd by SUZANNE Howard w/assist by this RN. Patient tolerated well.
[2023-05-24 12:21] LABS: Glucose - Point of Care 266 mg/dl (70-99)
[2023-05-24] MEDS: NOVOLOG FLEXPEN-HIGH RESISTANCE 7 UNITS SC ×2 (12:21→17:33)
[2023-05-24] MEDS: CARDIZEM CD 120 MG PO (12:25)
--- NOTE | 2023-05-24 12:32 | PTCARENOTE ---
VS obtained, assessment unchanged. Patient assisted back oob to chair for lunch, states pain much better w/removal of chest tubes. at bedside for visit.
[2023-05-24] MEDS: MAGNESIUM SULFATE 100 IV (13:45)
[2023-05-24 14:18] LABS: Magnesium 2.7 mg/dl (1.6-2.3)
[2023-05-24] MEDS: CORDARONE 103 MG IV (16:15)
--- NOTE | 2023-05-24 16:21 | PTCARENOTE ---
VS obtained, assessment stable. Patient resting comfortably, states pain controlled.
[2023-05-24] MEDS: CRESTOR 40 MG PO (17:32)
[2023-05-24 17:34] LABS: Glucose - Point of Care 264 mg/dl (70-99)
--- NOTE | 2023-05-24 20:30 | PTCARENOTE ---
Assumed care of patient at 1900. Patient found OOB in chair at time of assessment. Patient is AOx4, follows commands appropriately, moves all extremities. Lung sounds are diminished at the bases, patient is noted to have a moist frequent productive
cough with thin clear sputum. Patient is on RA with saO2 @93%. Heart sounds are irregular, patient is afib on the monitor, there are normal palpable radial/dorsalis pedis pulses, and +1 generalized anasarca. Patient has a round obese abdomen with
active BS and reported BM during the day. Patient is voiding clear yellow in the urinal. Patient has a L FA PIV available for intermittent infusion. There is a sternal incision with aquacell dressing that is CDI, a L groin puncture that is approx
with surg adhesive and sutures that is DINING ROOM BUSSER, a LLE incision that is approx with surg adhesive and sutures that is AUBRIE. There is a brown discoloration to the legs likely 2/2 to PVD. The ABD dressing over the CT wound sites has some moderate
serosanguineous drainage. This dressing was changed by this RN. Assisted patient back to bed without incident. VSS. Patient is stable.
[2023-05-24] MEDS: ROXICODONE 5 MG PO (22:15)
[2023-05-24] MEDS: LANTUS 0.200000000000000011 UNITS SC (22:15)
[2023-05-24 22:16] LABS: Glucose - Point of Care 270 mg/dl (70-99)
[2023-05-25] VITALS (16 sets, daily range): BP systolic 118–195; BP diastolic 54–92; PULSE 80; O2SAT 96–97; BMI 34.5
--- NOTE | 2023-05-25 00:07 | PTCARENOTE ---
At approx 0005 patient converted from Afib back to SR with first deg AV block. Patient asleep at the time. Info relayed to CT POWDER LOADER. Patient is stable.
--- NOTE | 2023-05-25 00:20 | PTCARENOTE ---
Patient reassessed. VSS. Patient received PRN tylenol and 5 roxyx1 for pain. Patient asleep at this time. Patient is stable.
[2023-05-25] MEDS: TYLENOL 650 MG PO ×3 (04:21→21:58)
--- NOTE | 2023-05-25 04:30 | PTCARENOTE ---
Addendum entered by David Tam RN 05/25/23 05:47:
Patient is SR with first degree heart block on monitor.
Original Note:
Patient reassessed. VSS. Patient placed on 1L O2 overnight due to patient's report of 'labored breathing'. saO2 at 94%. Received tylenolx1 for mild pain. AM labs obtained. AM hygiene care provided.
[2023-05-25 05:11] LABS: Hematocrit 24.8 % (39.0-52.0); Hemoglobin 8.7 g/dL (13.0-18.0); Mean Corp Hgb Conc. 35.1 g/dL (33.0-37.0); Mean Corpuscular Hgb 32.2 pg (27.0-31.0); Mean Corpuscular Volume 91.9 fL (80.0-94.0); Mean Platelet Volume 10.5 fL (7.4-10.4); Platelet Count 176 10^3/uL (130-400); Red Cell Dist. Width 13.4 % (11.5-14.5); White Blood Cell Count 7.5 10^3/uL (4.8-10.8)
--- NOTE | 2023-05-25 05:22 | W.PN.CT ---
Addendum entered and electronically signed by Keyur Nichols MD 05/25/23 07:38:
I saw and examined the patient.
The PA's note was reviewed and I agree with the note.
Comment:
POD#4 s/p CABG x 4
AF yesterday, treated w/ amiodarone protocol; transitioned to cardizem 240mg PO daily. Converted to NSR at AK. Tm 98.8. 72 sinus. 124/68. 95% RA. GTTS: none. No drains. UO: spontaneous, adequate. Tolerating PO. Neuro: intact. 7.5>8.7<176;
44/1.5, Na 132.
- ASA/plavix, amio, cardizem, crestor; no BB secondary to prior intolerance
- Will D/C plavix and start Eliquis today
- DM education, increased lantis - follow BS
- Diuresis PO today
- OOB/IS/ambulate
- D/C planning for hopefully tomorrow
Original Note:
Today's Communication / Plan
-
-pod #4
-Went into afib with controlled ventricular rate yesterday, converted around midnight. Currently in NSR
-Serum Na improving (130->132) with FW restriction/diuresis
-Cards started Cardizem CD, BP control better
-meds (ASA, Plavix, Amio, Crestor). No BB d/t intolerance.�
-encourage IS, OOB
Assessment / Plan
-
-mv-CAD- s/p CABG x 4 (GILLIAN to D1, ALVARO to R PLB, sGSV to OM1/OM2); LLE EVH on 05/21/[address] Nichols, pod #4
-POST-PHOEBE: Normal biventricular function w/o RWMA.� No sig valvular pathology
-CAD - s/p LAD and Diag stents in 2014 and 2016
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
-IVC reconstruction with stent
-HTN/HLD
-DM II (HgA1c 6.3)
-CKD 3a (Cr 1.6 preop)
-Non-smoker
-Intolerance of BB (dizziness)
-Pre-existing 1st degree AVB
-Acute postop blood loss anemia - no active bleed, no transfusion
-Acute postop thrombocytopenia
-Acute postop atelectasis
-JEWEL in setting of CKD
Subjective
Procedure
- s/p CABG x 4 (GILLIAN to D1, ALVARO to R PLB, sGSV to OM1/OM2); LLE EVH on 05/21/[address] Nichols
-
Date of Service: May 25, 2023
Objective Data
-
PT 17.9 Sec (11.4-14.6) H 05/21/23 16:55
INR 1.45 05/21/23 16:55
APTT 29.4 Sec (23.4-35.0) 05/21/23 16:55
Vital Signs
Vital Signs
Temp Pulse Resp BP Pulse Ox
98.4 F 72 20 124/68 95
05/24/23 23:00 05/25/23 00:05 05/24/23 23:00 05/24/23 23:00 05/24/23 23:00
CT Intake/Output/Weight
05/24/23 05/24/23 05/25/23
06:59 18:59 06:59
Intake Total 400 / 1160 620 / 860 240 / 860
Output Total 1250 / 2300 1130 / 1130
Balance -850 / -1140 -510 / -270 240 / -270
SaO2: 95
Physical Exam
-
General: Awake and Oriented
Cardiovascular: Regular rate & rhythm and No Murmurs
Respiratory: Clear and Equal
Sternum: Stable
Incision: Clean, Dry and Intact
Extremities: No Edema
Data Reviewed
-
Lab Results: Results Reviewed
Medications: Active Meds Reviewed
Chest X-Ray: Report Reviewed
ECG: Report Reviewed
[2023-05-25 05:35] LABS: Blood Urea Nitrogen 44 mg/dl (9-20); Carbon Dioxide 30 mmol/L (22-30); Chloride 100 mmol/L (98-107); Estimated Creatinine Clearance 66 ml/min; Glucose 146 mg/dl (70-99); Potassium 4.8 mmol/L (3.5-5.1)
[2023-05-25 05:41] LABS: Sodium 132 mmol/L (135-145)
--- NOTE | 2023-05-25 07:00 | PTCARENOTE ---
Bedside walking rounds report received. Patient seen on rounds oob in chair on room air. NSR with 1st degree avb/prolonged QT interval rated in the 80's. Temp epicardial v wire insulated and secured. [employer] pacing box accessible in room. Left arm
visibly more edematous/ecchymotic than previous assessments: CT surgery aware on rounds: new orders received. Left arm has a palpable radial pulse but feel 'tingly and tips of fingers slightly numb' CT surgical PA Pat aware: left forearm #24 gauge
(previous IV amiodarone bolus given through this IV previous day) no signs of palpable cord or infiltrate) DC. Plan to ambulate at least 4 times in hallway.
[2023-05-25 07:44] LABS: Glucose - Point of Care 185 mg/dl (70-99)
--- NOTE | 2023-05-25 07:47 | PN.DE.MGMTRT ---
Insulin Management
- -
05/25/2023: Diabetes Management Consult
67 year old male who presented for elective CABG, and is now POD #4 s/p CABG X4.
PMH that includes: HTN, HLD, Multivessel CAD (with history of stenting) DVT/PE s/p IVC filter on Eliquis, CKD, Venous insufficiency, hepatic steatosis, GERD, chronic back pain and T2DM, A1C 6.3%, Cr 2.5-->1.5 today
Pt was taking Ozempic 1mg on Thursday, Actos 30mg daily, Metformin 100mg daily, Tresiba 72 units daily and NovoLog 6 units AC. He was initially on the CC glycemic protocol and was transitioned to SQ insulin and Metformin over the weekend.
Pt states he takes his Lantus in the morning and was having good glucose control prior to surgery.
His premeal glucose trended up to 308 and has remained >200. FBG was 146 this AM, premeal range 186 to 266, requiring 2-10 units of corrective.
Luan started him on NovoLog 6 units AC and increased his Lantus dose from 20 units to 50 units @ HS.
Will stop HS Lantus, as pt takes it in the morning. Start Lantus 40 units in am, 1st dose now. Agree with AC NovoLog 6 units.
Discuss starting Farxiga, pt was amenable, states his Nephrology had discussed it with him and was planning to start it (verified co-pay $10/month for 30 day sup), will start Farxiga 10 mg daily, 1st dose now. Cont Metformin 1000 mg daily. Change to
moderate corrective insulin with meals
Discussed Actos and instructed pt not to take any further doses at home.
Diabetes History
- -
Type of Diabetes: 2 requiring insulin
Pre-Admission Diabetes Regimen
05/25/23
04:40
Creatinine 1.5 H
Lab Results
Hemoglobin A1c 6.3 % (4.0-5.6) H 05/05/23 08:19
Insulin Pump Settings
IP Diabetes Regimen
05/24/23 05/24/23 05/24/23
07:51 12:19 17:33
Glucose
POC Glucose 224 H 266 H 264 H
05/24/23 05/25/23 05/25/23
22:14 04:40 07:42
Glucose 146 H
POC Glucose 270 H 185 H
Meal type: Lunch
Meal type: Breakfast
Amount consumed: 100%
Amount consumed: 100%
Patient Education
--- NOTE | 2023-05-25 07:49 | W.PN.CD ---
Today's Communication / Plan
-
ambulate
diurese
resume eliquis and stop plavix
Impression / Plan
-
Assessment/Plan:
67 y/o male (patient of Dr. Chen) with HTN, HLD, DM2, DVT/PE on Eliquis, and Multivessel CAD (with history of stenting) who is now s/ CABG.
Multivessel CAD:
-CABG x 4 (GILLIAN to D1, ALVARO to R PLB, sGSV to OM1/OM2) with Dr. Nichols 05/21/23
-Tubes out and doing well POD#4
-Continue ASA and statin.
-Continue diuresis as wt up 5lbs vs preop today
AF:
-Postop AF (no hx) which is intermittent and rate controlled
- Would continue Amiodarone (200bid on discharge) for 4-6 wks
-Eliquis (which he is on as outpt due to DVT) to resume today. ASA to continue (? 3-6mo). Stop plavix
HTN:
-Cardizem CD 240 qd started today
HLD:
-Continue high-dose rosuvastatin.
DM:
-follow
Hx DVT/PE:
-hx of removed IVC filter per OP chart
-on Eliquis as OP; held for procedure- resume when safe per CT surgery
- Slight asymmetry of upper extremities. Would not hyun as eliquis starting today. warm soaks as needed
Subjective:
Feels well.
Physical Exam
Vital Signs/Labs
Vital Signs
Temp Pulse Resp BP Pulse Ox
97.9 F 78 18 146/54 93
05/25/23 07:48 05/25/23 07:10 05/25/23 07:48 05/25/23 07:48 05/25/23 07:48
05/24/23 05/25/23 05/26/23
06:59 06:59 06:59
Actual Weight 272 lb 7.861 oz 268 lb 4.841 oz
05/25/23 04:40
05/25/23 04:40
PT 17.9 Sec (11.4-14.6) H 05/21/23 16:55
INR 1.45 05/21/23 16:55
APTT 29.4 Sec (23.4-35.0) 05/21/23 16:55
Magnesium 2.7 mg/dl (1.6-2.3) H 05/24/23 03:28
Physical Exam
Constitutional: No acute distress and Comfortable
Cardiovascular: Rhythm & rate is regular, Systolic murmur absent and S1S2 is normal
Respiratory: Respiratory effort normal and Other (Bilateral dullness at bases)
GI: Non tender
Neuro/Psych: AO x 3 and Motor deficits absent
Other: Other (2+ edema LEs and LUE slightly larger than RUE)
Data Reviewed
-
Date of Service: May 25, 2023
[2023-05-25] MEDS: NOVOLOG FLEXPEN 6 UNITS SC ×3 (07:51→17:33)
[2023-05-25] MEDS: NOVOLOG FLEXPEN-HIGH RESISTANCE 2 UNITS SC (07:51)
[2023-05-25] MEDS: BACTROBAN 2% OINTMENT 1 APPLIC NASAL (07:52)
[2023-05-25] MEDS: NEURONTIN 300 MG PO ×3 (08:20→21:58)
[2023-05-25] MEDS: MUCINEX 600 MG PO ×2 (08:20→19:39)
[2023-05-25] MEDS: PROTONIX 40 MG PO (08:20)
[2023-05-25] MEDS: PACERONE 200 MG PO ×2 (08:20→17:28)
[2023-05-25] MEDS: LOW STRENGTH ASPIRIN 81 MG PO (08:20)
[2023-05-25] MEDS: LASIX 20 MG PO (08:20)
[2023-05-25] MEDS: ELIQUIS 5 MG PO ×2 (08:21→19:39)
[2023-05-25] MEDS: SENOKOT-S 1 TABLET PO (08:21)
[2023-05-25] MEDS: KCL PO (08:21)
[2023-05-25] MEDS: GLUCOPHAGE 1000 MG PO (08:21)
[2023-05-25] MEDS: CARDIZEM CD 240 MG PO (08:21)
[2023-05-25] MEDS: FARXIGA 10 MG PO (09:34)
--- NOTE | 2023-05-25 09:40 | CM ---
dc plans remain home when medically stable
[2023-05-25] MEDS: LANTUS 0.400000000000000022 UNITS SC (10:29)
--- NOTE | 2023-05-25 12:00 | PTCARENOTE ---
Ambulating in hallway (left arm increasing tingly: STOCKROOM SUPERVISOR Marimar aware; also aware of increased frequency of dry and nonproductive cough: new orders received. No other acute changes.
[2023-05-25] MEDS: NOVOLOG FLEXPEN-MODERATE RESISTANCE 3 UNITS SC ×2 (12:09→17:33)
[2023-05-25 12:13] LABS: Glucose - Point of Care 214 mg/dl (70-99)
--- NOTE | 2023-05-25 15:46 | PTCARENOTE ---
Patient ambulated 200ft in hallway: patient does have a continued dry frequent cough (occurs just with trying to talk and at rest): patient is also hypertensive (173/92): CT surgery ASSIGNMENT MANAGER Marimar aware of same. New orders received: patient is going via
wheelchair for a 2 view x ray routine POD#4. Otherwise, room air, afebrile.
[2023-05-25] MEDS: CRESTOR 40 MG PO (17:28)
[2023-05-25] MEDS: NSS IV (17:28)
[2023-05-25 17:40] LABS: Glucose - Point of Care 215 mg/dl (70-99)
--- NOTE | 2023-05-25 19:37 | PTCARENOTE ---
assumed care of patient @ 1900. received pt laying in bed, AOX3. Afebrile, no c/o pain or nausea. NSR with 1*AVB. V wire insulated. +1 RUE edema, trace anasarca noted. Dry cough present, reinforced splinting with pillow education. Lungs sound clear
on room air, 02 sats mid 90s. pt does endorse JENKINS. +BM today, pt does not want stool softeners. Voiding clear yellow urine in bathroom spontaneous amounts. Sternal aquacel CDI, R leg incision CDI AUBRIE. 18 gauge patent in R wrist. call leon within
reach, bed low and locked,
[2023-05-25] MEDS: SENOKOT-S PO (19:40)
[2023-05-25 21:20] LABS: Glucose - Point of Care 162 mg/dl (70-99)
[2023-05-25] MEDS: PROCARDIA XL (EXTENDED RELEASE) 30 MG PO (21:58)
[2023-05-25] MEDS: PACERONE 400 MG PO (21:58)
[2023-05-25] MEDS: ROXICODONE 5 MG PO (23:05)
[2023-05-26] VITALS (12 sets, daily range): BP systolic 121–162; BP diastolic 47–63; PULSE 70–83; O2SAT 93–96; BMI 34.4
--- NOTE | 2023-05-26 | PTCARENOTE ---
nanette 5 given for sternal pain, pt resting comfortably call leon within reach, no change in assessment
--- NOTE | 2023-05-26 03:13 | PTCARENOTE ---
lab work drawn and sent, pt resting comfortably, no change in assessment.
[2023-05-26 03:36] LABS: Hematocrit 23.1 % (39.0-52.0); Hemoglobin 8.1 g/dL (13.0-18.0); Mean Corp Hgb Conc. 35.1 g/dL (33.0-37.0); Mean Corpuscular Hgb 32.8 pg (27.0-31.0); Mean Corpuscular Volume 93.5 fL (80.0-94.0); Mean Platelet Volume 10.5 fL (7.4-10.4); Platelet Count 201 10^3/uL (130-400); Red Blood Cell Count 2.47 10^6/uL (4.70-6.10); Red Cell Dist. Width 13.4 % (11.5-14.5); White Blood Cell Count 7.6 10^3/uL (4.8-10.8)
--- NOTE | 2023-05-26 03:46 | W.PN.CT ---
Addendum entered and electronically signed by Keyur Nichols MD 05/26/23 07:43:
I saw and examined the patient.
The PA's note was reviewed and I agree with the note.
Comment:
POD#5 s/p CABG x 4
No major overngiht events. Minor difficulty w/ stairs yesterday. Tm 98.7. 72 sinus. 141/63. 94% RA. No gtts. No drains. UO: spontaneous, adequate. Tolerating PO. Neuro: intact. 7.6>8.1<201; 45/1.6. Na 134 (up from 132).
- OOB/IS/ambulate/PT/OT
- ASA/Eliquis, Cardizem, Nifedipine, amio, pt w/ hx of BB intolerance, statin
- D/C planning for hopefully tomorrow
Original Note:
Today's Communication / Plan
-
-No major issues overnight. Hemodynamically and neurologically intact
-No further a-fib or 2:1 AVB since POD#3
-Hypertensive last night despite addition of Cardizem Cd, will increase dose from 240 to 360 mg today. Gave stat dose of 30 mg Nifedipine last night for BP control
-Cont. current meds (ASA, Eliquis, Amiodarone-decreased to BID, Cardizem Cd, Crestor, Nifedipine, Lasix, Diabetes meds- Lantus, Farxiga, Metformin)
-Diabetes education/management following
-Creatinine is @ baseline of 1.6
-Hyponatremia is improving, 134 was 132 yesterday, cont. diuresis and fluid restriction
-Encourage use of IS
-OOB into chair/Ambulate
-D/C temporary PW (cut)
-Home today
Assessment / Plan
-
-mv-CAD- s/p CABG x 4 (GILLIAN to D1, ALVARO to R PLB, sGSV to OM1/OM2); LLE EVH on 05/21/[address] Nichols, pod #5
-POST-PHOEBE: Normal biventricular function w/o RWMA.� No sig valvular pathology
-CAD - s/p LAD and Diag stents in 2014 and 2016
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
-IVC reconstruction with stent
-HTN/HLD
-DM II (HgA1c 6.3)
-CKD 3a (Cr 1.6 preop)
-Non-smoker
-Intolerance of BB (dizziness)
-Pre-existing 1st degree AVB
-Acute postop blood loss anemia - no active bleed, no transfusion
-Acute postop thrombocytopenia
-Acute postop atelectasis/pleural effusion
-Acute postop small right apical ptx
-JEWEL in setting of CKD
-Acute postop controlled a-fib
-Acute postop 2:1 AVB
Discussed patient care with: Cardiology, Nursing, Respiratory Therapy, Pharmacy and Care Team
Subjective
Procedure
- s/p CABG x 4 (GILLIAN to D1, ALVARO to R PLB, sGSV to OM1/OM2); LLE EVH on 05/21/[address] Nichols
-
Date of Service: May 26, 2023
Pt c/o paresthesia of 4th and 5th digits of left hand, otherwise feels well. Denies lightheadedness/dizziness but admits to feeling weak. Ambulated halls without difficulty and has had BM
Objective Data
-
Lab Results
05/26/23 03:21
PT 17.9 Sec (11.4-14.6) H 05/21/23 16:55
INR 1.45 05/21/23 16:55
APTT 29.4 Sec (23.4-35.0) 05/21/23 16:55
Vital Signs
Vital Signs
Temp Pulse Resp BP Pulse Ox
98.4 F 71 16 118/70 94
05/25/23 23:36 05/26/23 00:00 05/25/23 23:36 05/25/23 23:06 05/25/23 23:36
CT Intake/Output/Weight
05/25/23 05/25/23 05/26/23
06:59 18:59 06:59
Intake Total 240 / 860 350 / 1455 1105 / 1455
Output Total 420 / 1550
Balance -180 / -690 350 / 1455 1105 / 1455
SaO2: 94 (RA)
Physical Exam
-
General: Awake, Oriented and AOx3
Cardiovascular: Regular rate & rhythm, Murmur, No Rub and No Gallop
Respiratory: Decreased Breath Sounds (with rhonchi @ right base)
Sternum: Stable
Incision: Clean, Dry, Intact and Dressing Intact
Extremities: Other (+1 trace edema)
Data Reviewed
-
Lab Results: Results Reviewed
Medications: Active Meds Reviewed
Chest X-Ray: Report Reviewed and Image Reviewed
ECG: Report Reviewed and Image Reviewed
[2023-05-26 03:57] LABS: Blood Urea Nitrogen 45 mg/dl (9-20); Calcium 8.2 mg/dl (8.4-10.2); Carbon Dioxide 28 mmol/L (22-30); Chloride 98 mmol/L (98-107); Estimated Creatinine Clearance 61 ml/min; Glucose 137 mg/dl (70-99); Magnesium 2.7 mg/dl (1.6-2.3); Potassium 4.5 mmol/L (3.5-5.1); Sodium 134 mmol/L (135-145); eGFR 46.64
--- NOTE | 2023-05-26 07:10 | PTCARENOTE ---
Physician notified 9 beat run VT, asymptomatic. BP stable.
[2023-05-26 07:15] LABS: Glucose - Point of Care 166 mg/dl (70-99)
--- NOTE | 2023-05-26 07:51 | PTCARENOTE ---
Patient received from security shift supervisor resting comfortably oob in chair, AAO X 3, states pain controlled at this time. VSS - NSR via cm, SaO2 @ 92% on RA. Epicardial V-wire, insulated to chest wall. All procedural sites stable. R wrist PIV, patent.
Previously noted L FA swelling appears much improved per patient. Dr. Nichols and CT team to bedside for am rounds, patient updated to plan of care for the day, in agreement. See work list for full assessment and interventions performed.
[2023-05-26] MEDS: LANTUS 0.400000000000000022 UNITS SC (08:00)
[2023-05-26] MEDS: PROCARDIA XL (EXTENDED RELEASE) 30 MG PO (08:01)
[2023-05-26] MEDS: NEURONTIN 300 MG PO ×3 (08:02→21:47)
[2023-05-26] MEDS: FARXIGA 10 MG PO (08:02)
[2023-05-26] MEDS: SENOKOT-S PO (08:02)
[2023-05-26] MEDS: PROTONIX 40 MG PO (08:02)
[2023-05-26] MEDS: CARDIZEM CD 360 MG PO (08:02)
[2023-05-26] MEDS: MUCINEX 600 MG PO ×2 (08:02→20:07)
[2023-05-26] MEDS: ELIQUIS 5 MG PO ×2 (08:03→20:07)
[2023-05-26] MEDS: GLUCOPHAGE 1000 MG PO (08:03)
[2023-05-26] MEDS: LOW STRENGTH ASPIRIN 81 MG PO (08:03)
[2023-05-26] MEDS: NOVOLOG FLEXPEN 6 UNITS SC (08:03)
[2023-05-26] MEDS: PACERONE 200 MG PO ×2 (08:03→20:07)
[2023-05-26] MEDS: NOVOLOG FLEXPEN-MODERATE RESISTANCE 1 UNITS SC ×3 (08:04→17:26)
[2023-05-26] MEDS: NSS IV (08:10)
--- NOTE | 2023-05-26 08:43 | PN.DE.MGMTRT ---
Insulin Management
- -
05/25/2023: Diabetes Management Consult
67 year old male who presented for elective CABG, and is now POD #4 s/p CABG X4.
PMH that includes: HTN, HLD, Multivessel CAD (with history of stenting) DVT/PE s/p IVC filter on Eliquis, CKD, Venous insufficiency, hepatic steatosis, GERD, chronic back pain and T2DM, A1C 6.3%, Cr 2.5-->1.5 today
Pt was taking Ozempic 1mg on Thursday, Actos 30mg daily, Metformin 100mg daily, Tresiba 72 units daily and NovoLog 6 units AC. He was initially on the CC glycemic protocol and was transitioned to SQ insulin and Metformin over the weekend.
Pt states he takes his Lantus in the morning and was having good glucose control prior to surgery.
His premeal glucose trended up to 308 and has remained >200. FBG was 146 this AM, premeal range 186 to 266, requiring 2-10 units of corrective.
Luan started him on NovoLog 6 units AC and increased his Lantus dose from 20 units to 50 units @ HS.
Will stop HS Lantus, as pt takes it in the morning. Start Lantus 40 units in am, 1st dose now. Agree with AC NovoLog 6 units.
Discuss starting Farxiga, pt was amenable, states his Nephrology had discussed it with him and was planning to start it (verified co-pay $10/month for 30 day sup), will start Farxiga 10 mg daily, 1st dose now. Cont Metformin 1000 mg daily. Change to
moderate corrective insulin with meals
Discussed Actos and instructed pt not to take any further doses at home.
05/26/2023 Diabetes Management Follow up
Patient regimen yesteerday 6 units novolog AC with Lantus 40 units in AM. Required 3 units corrective insulin with meals. Will increase AC novolog to 9 units. Will continue lantus 40 units, Farxiga 10 mg daily and metformin 1000 mg BID. Glucose
improved this AM 137 fasting.
Diabetes History
- -
Type of Diabetes: 2 requiring insulin
Pre-Admission Diabetes Regimen
05/26/23
03:21
Creatinine 1.6 H
Lab Results
Hemoglobin A1c 6.3 % (4.0-5.6) H 05/05/23 08:19
Insulin Pump Settings
IP Diabetes Regimen
05/25/23 05/25/23 05/25/23
12:05 17:30 21:19
Glucose
POC Glucose 214 H 215 H 162 H
05/26/23 05/26/23
03:21 07:11
Glucose 137 H
POC Glucose 166 H
Meal type: Breakfast
Amount consumed: 100%
Patient Education
[2023-05-26] MEDS: KCL PO (09:18)
[2023-05-26] MEDS: ZOFRAN 4 MG IV (11:50)
--- NOTE | 2023-05-26 11:55 | PTCARENOTE ---
VS obtained, stable. Patient c/o nausea, assisted to bed for rest, medicated for such. Does not want lunch at this time.
[2023-05-26 11:58] LABS: Hematocrit 25.7 % (39.0-52.0); Mean Corpuscular Hgb 31.9 pg (27.0-31.0); Mean Corpuscular Volume 91.1 fL (80.0-94.0); Mean Platelet Volume 10.2 fL (7.4-10.4); Platelet Count 261 10^3/uL (130-400); Red Blood Cell Count 2.82 10^6/uL (4.70-6.10); Red Cell Dist. Width 13.5 % (11.5-14.5); White Blood Cell Count 10.7 10^3/uL (4.8-10.8)
--- NOTE | 2023-05-26 13:31 | W.DCSUMMARY ---
Discharge Summary
Discharge Data
Date of Admission: 05/21/23
Date of Discharge: 05/27/23
-
Pending Results: No
Hospital Course
Primary care physician: Sarika Chandler
Outpatient organic gardening teacher: Valentin Chen
Inpatient consultants: [facility]
Procedures:
1. Coronary artery bypass grafting
Primary Diagnosis:
1. Coronary artery disease
Secondary Diagnoses:
1. History of stent to distal LAD in 2017 and diagonal 2014
2. 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
3. Type 2 diabetes
4. Hypertension
5. Hyperlipidemia
6. Chronic kidney disease stage III
7. Acute surgical blood loss anemia�expected
HPI: Simone Glaser is a 67-year-old male electively admitted on 05/21/23 for coronary artery bypass grafting.
Hospital course: Patient underwent CABG x 4 with JOSEPH to LAD, saphenous to OM 1 and 2, DELICIA to RPL with Dr. Nichols. Intraoperative PHOEBE reported ejection fraction 55 to 60% with trace to moderate mitral regurgitation and trace tricuspid
regurgitation. Patient returned to the CVICU on Precedex, insulin, and Cardene. Initial ABG reported respiratory acidosis which was corrected by increasing respiratory rate and tidal volume. Levophed was initiated for postoperative hypotension
and weaned off overnight. Postoperative day #1 patient was declined and started on Plavix and aspirin. Postoperative day #2 insulin infusion was discontinued and patient was started on high-dose sliding scale insulin plus Lantus. Patient was
started on Norvasc for hypertension. Chest tube was intact for continued drainage and tiny right pneumothorax. Postoperative day #3 right pneumothorax was resolved on chest x-ray. Chest tubes and right IJ cordis were discontinued. Amlodipine was
changed to Cardizem. Patient developed brief atrial fibrillation and was given intravenous magnesium and 150 IV bolus of amiodarone with resolution of rhythm. Postoperative day #4 patient's blood pressure remains elevated in the 140s to 150s and
Cardizem was increased to 360 mg. Patient did become winded with ambulation and did not complete stairs. Postoperative day #5 insulin adjustments were made by diabetic nurse practitioner. Patient did stairs without incident. Temporary wires were
cut. Patient will be discharged home on postoperative day #6.
Home medication changes:
see below
Discharge Plan
-
Patient Disposition: Home (Routine Discharge)
Discharge Diagnosis/Procedures: coronary artery disease/coronary artery bypass grafting x 4
Condition: Good
Diet: Low Cholesterol, Low Sodium and Diabetic, Carb Controlled
Activity: No strenuous activity
Driving Restrictions: Not until seen by your Dr
Bathing Restrictions: OK to Shower
Other Services: Cardiac Rehab
Specialty Instructions: Weigh Daily- Call MD for wt gain/loss 3 lbs overnight/5 lbs in 1 week
Stop these medications:: isosorbide
nifedipine
nitroglycerin tabs.
pioglitazone
Activity Restrictions/Additional Instructions:
ACTIVITY:
-No strenuous activity: no heavy lifting, pushing, pulling anything over 15 pounds for one month
-continue to use stairs as tolerated
DRIVING RESTRICTIONS:
-No driving for one month or until approved by your surgeon
WOUND CARE:
-Shower daily. Use soap & water.
-No lotions, creams or powders on incision area.
DIET:
-continue a low fat/low cholesterol diet.
-IF you are diabetic, continue carb controlled diet.
CARDIAC REHAB:
-Please make appointment to start in 5-6 weeks with your local hospital program. (See Cardiac Rehabilitation Discharge Booklet).
SPECIALTY INSTRUCTIONS:
-Weigh yourself daily. Call your physician for any weight gain/loss of 3 lbs overnight or 5 lbs in one week.
-REPORT any clicking noise or uneven appearance of your sternum to your surgeon immediately.
-If you smoke, you are instructed to quit. The [place] smoking hotline phone number is [phone]
Referrals:
CT Transitional Care Nurse [Outside] (The Cardiothoracic Transitional Care Nurse will call you to set up a visit in 1-2 days.)
Sarika Chandler PA [Family Provider] -
Valentin Chen DO [Non-Admitting Privileges] - 06/30/23 10:40 am
Keyur Nichols MD [Active] - 06/23/23 2:00 pm
Prescriptions:
Continued
magnesium 250 MG tablet
250 mg PO DAILY
coenzyme Q10 [Co Q-10] 200 MG capsule
200 mg PO DAILY
Centrum Silver Men 1 EACH tablet
1 ea PO DAILY
vitamin E 400 unit Tablet
800 unit PO DAILY
rosuvastatin 40 mg Tablet
40 mg PO QPM
Eliquis 5 mg Tablet
5 mg PO BID
aspirin 81 MG tablet,delayed release (DR/EC)
81 mg PO DAILY
pantoprazole 40 MG tablet,delayed release (DR/EC)
40 mg PO DAILY
Discontinued
nitroglycerin 0.4 MG tablet, sublingual
0.4 mg sublingual [id number] PRN (Reason: chest pain) Qty: 30 3RF
pioglitazone 30 MG tablet
30 mg PO DAILY
nifedipine 90 mg Tablet Extended Release 24hr
90 mg PO DAILY Qty: 0
isosorbide mononitrate 30 MG tablet extended release 24 hr
30 mg PO DAILY
No Action
fenofibric acid (choline) 135 MG capsule,delayed release(DR/EC)
135 mg PO DAILY
insulin degludec [Tresiba FlexTouch U-100] 100 UNIT/ML insulin pen
72 unit SQ DAILY
insulin aspart U-100 [Novolog FlexPen U-100 Insulin] 100 unit/mL (3 mL) Insulin Pen
6 unit SC AC Qty: 0
lisinopril-hydrochlorothiazide 20-12.5 mg Tablet
1 tab PO BID
Ozempic 1 mg/dose (4 mg/3 mL) Pen Injector
1 mg SC HAIRSTON
metformin 1,000 MG tablet
1,000 mg PO DAILY
Care Plan Goals
Care Plan Goals:
Problem: Readiness for enhanced knowledge related to diagnosis and treatment plan
Goal: Understand your diagnosis and treatment plan needs, including medications if applicable.
Instructions: Know your diagnosis, underlying causes and treatment plan options, including medications if applicable. Consult with your health care team to learn about your diagnosis and treatment plan, including medications if applicable.
[2023-05-26] MEDS: NOVOLOG FLEXPEN 9 UNITS SC ×2 (14:16→17:25)
[2023-05-26 14:17] LABS: Glucose - Point of Care 194 mg/dl (70-99)
--- NOTE | 2023-05-26 14:19 | PTCARENOTE ---
Epicardial pacing wire and associated grounding wires d/c'd by SUZANNE Howard, patient tolerated well.
--- NOTE | 2023-05-26 16:25 | PTCARENOTE ---
VS obtained, stable. SaO2 to 87% on RA, 1lnc applied w/SaO2 @ 92%, patient dozing in chair. SUZANNE Lee notified.
--- NOTE | 2023-05-26 17:08 | W.PN.CD ---
Today's Communication / Plan
-
stop nifedipinexl
continue dilt cd 240
Impression / Plan
-
Assessment/Plan:
67 y/o male (patient of Dr. Chen) with HTN, HLD, DM2, DVT/PE on Eliquis, and Multivessel CAD (with history of stenting) who is now s/ CABG.
Multivessel CAD:
-CABG x 4 (GILLIAN to D1, ALVARO to R PLB, sGSV to OM1/OM2) with Dr. Nichols 05/21/23
-Tubes out and doing well POD#4
-Continue ASA and statin.
-Continue diuresis as wt up 4lbs vs preop today. Maybe one week of lasix at home
AF:
-Postop AF (no hx) which is intermittent and rate controlled
- Would continue Amiodarone (200bid on discharge) for 4-6 wks
-Eliquis (which he is on as outpt due to DVT) to resume today. ASA to continue (? 3-6mo). Stop plavix
HTN:
-Cardizem CD 240 qd started today
- Stop nifedipine XL 90 which was added last night
HLD:
-Continue high-dose rosuvastatin.
DM:
-follow
Hx DVT/PE:
-hx of removed IVC filter per OP chart
-Back on eliquis
Subjective:
Feels well.
Physical Exam
Vital Signs/Labs
Vital Signs
Temp Pulse Resp BP Pulse Ox
98.7 F 72 17 136/47 92
05/26/23 16:29 05/26/23 16:29 05/26/23 16:29 05/26/23 16:23 05/26/23 16:29
05/25/23 05/26/23 05/27/23
06:59 06:59 06:59
Actual Weight 268 lb 4.841 oz 267 lb 6.731 oz
05/26/23 11:46
05/26/23 03:21
PT 17.9 Sec (11.4-14.6) H 05/21/23 16:55
INR 1.45 05/21/23 16:55
APTT 29.4 Sec (23.4-35.0) 05/21/23 16:55
Magnesium 2.7 mg/dl (1.6-2.3) H 05/26/23 03:21
Physical Exam
Constitutional: No acute distress
Cardiovascular: Rhythm & rate is regular
Respiratory: Respiratory effort normal
GI: Non tender
Neuro/Psych: AO x 3 and Motor deficits absent
Data Reviewed
-
Date of Service: May 26, 2023
[2023-05-26] MEDS: CRESTOR 40 MG PO (17:25)
[2023-05-26 17:27] LABS: Glucose - Point of Care 174 mg/dl (70-99)
[2023-05-26] MEDS: SENOKOT-S 1 TABLET PO (20:07)
--- NOTE | 2023-05-26 20:30 | PTCARENOTE ---
Pt received from dayshift RN. Walking rounds completed with previous RN. Pt AAOx4. Pleasant. DUARTE. Pt SR on monitor w/ first degree heart block. HR 60s. BP 144/57. Bilateral radial and DP pulses palpable. Trace edema throughout. Pt on 2 L NC. POX
90-92%. Lung sounds diminished at the bases. IS encouraged. Occasional cough. Instructed to use heart pillow to splint sternal incision. Pt OOB to void w/o difficulty. Abdomen soft/nontender. BSx4. Sternal incision well approximated w/ surgical
adhesive. Left leg incision approximated w/ surgical adhesive and ecchymotic. Left groin site intact. Left forearm swelling improved per pt. No c/o pain or discomfort from left forearm. Right wrist PIV CDI. Pt walked in dee w/ 1 assist and
tolerated. Pt OOB to bathroom then repositioned back in bed. Call leon within reach. See worklist for full assessment, VS, and nursing interventions.
[2023-05-26] MEDS: TYLENOL 650 MG PO (21:47)
[2023-05-26 21:55] LABS: Glucose - Point of Care 209 mg/dl (70-99)
[2023-05-27] VITALS (9 sets, daily range): BP systolic 110–143; BP diastolic 48–96; BMI 34.7
--- NOTE | 2023-05-27 00:05 | PTCARENOTE ---
Addendum entered by Rosalie Weiss RN 05/27/23 00:14:
Pt on 4 L NC - not 2 L NC.
Original Note:
Previous assessment unchanged. Pt remains SR on monitor. HR 60s. BP stable. Pt maintained on 2 L NC. POX 91%. Pt received Ultrasound of L arm. No c/o pain at this time. Call leon within reach.
--- NOTE | 2023-05-27 04:15 | PTCARENOTE ---
Previous assessment unchanged. Pt remains SR on monitor. HR 60s. BP 131/56. Maintained on 4 L NC. POX 93%. Pt resting comfortably in bed at this time. No c/o pain. Labs drawn and sent. Call leon within reach.
[2023-05-27 04:30] LABS: Hematocrit 21.4 % (39.0-52.0); Hemoglobin 7.5 g/dL (13.0-18.0); Mean Corpuscular Hgb 31.9 pg (27.0-31.0); Mean Corpuscular Volume 91.1 fL (80.0-94.0); Mean Platelet Volume 10.1 fL (7.4-10.4); Platelet Count 222 10^3/uL (130-400); Red Blood Cell Count 2.35 10^6/uL (4.70-6.10); Red Cell Dist. Width 13.6 % (11.5-14.5); White Blood Cell Count 7.8 10^3/uL (4.8-10.8)
[2023-05-27 04:45] LABS: Blood Urea Nitrogen 50 mg/dl (9-20); Calcium 8.2 mg/dl (8.4-10.2); Carbon Dioxide 27 mmol/L (22-30); Chloride 97 mmol/L (98-107); Estimated Creatinine Clearance 51 ml/min; Glucose 155 mg/dl (70-99); Potassium 4.6 mmol/L (3.5-5.1); Sodium 131 mmol/L (135-145); eGFR 37.95
--- NOTE | 2023-05-27 06:06 | W.PN.CT ---
Addendum entered and electronically signed by Keyur Nihcols MD 05/27/23 08:12:
I saw and examined the patient.
The PA's note was reviewed and I agree with the note.
Comment:
POD#6 s/p CABG x 4
Rate controlled AF this AM (2nd episode). No major other overnight events. Attempted O2 wean yesterday w/ desat to high 80s w/ ambulation. Tm 98.8. 70 AF. 131/57. 95% 1L. GTTS: none. No drains. UO: spontaneous, adequate. Tolerating PO.
Neuro: intact. 7.8>7.5<222; 50/1.9. (up from 1.6; 1.6 preop). CXR (05/26) : no sig effusions, minor edema, minor elevation of right hemidiaphragm.
- Attempt to wean O2 again today; OOB/IS/ambulate later
- Transfuse 1U PRBC
- F/U repeat CXR, F/U read of LUDominique U/S
- Continue ASA/Eliquis, cardizem, amio, crestor
- D/C planning for 1-2 days
Original Note:
Today's Communication / Plan
-
-pod #6
-went into slow a-fib 50s at 4:40am- on Cardizem po 360 qd, Amio 200 bid and Eliquis
-ambulated in hallways, did stairs on 05/26
-mild hypoxia- pOx 88-91% on 2L and 94% on 4L (desaturation noted with sleep)- will check pox on RA while awake and with ambulation
-Cr 1.9 today (1.6 on 05/26, peak 2.3 on 05/22 and 1.6 preop)
-h/h 7.5/21.4 today (9.0/25.7 on 05/26)
-LUE US pending
-b/l tingling at 5th hand digits postop - improved
-pw was cut 05/26
-follow small amount of serosang. drainage from sternal incision
Assessment / Plan
-
-mv-CAD- s/p CABG x 4 (GILLIAN to D1, ALVARO to R PLB, sGSV to OM1/OM2); LLE EVH on 05/21/[address] Nichols, pod #6
-POST-PHOEBE: Normal biventricular function w/o RWMA.� No sig valvular pathology
-CAD - s/p LAD and Diag stents in 2014 and 2016
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
-IVC reconstruction with stent
-HTN/HLD
-DM II (HgA1c 6.3)
-CKD 3a (Cr 1.6 preop)
-Non-smoker
-Intolerance of BB (dizziness)
-Pre-existing 1st degree AVB
-Acute postop blood loss anemia - no active bleed, no transfusion
-Acute postop thrombocytopenia
-Acute postop atelectasis/pleural effusion/respirator insufficiency
-Acute postop small right apical ptx
-JEWEL in setting of CKD
-Acute postop hyponatremia
-Acute postop controlled a-fib
-Acute postop 2:1 AVB
Discussed patient care with: Nursing and Care Team
Subjective
Procedure
- s/p CABG x 4 (GILLIAN to D1, ALVARO to R PLB, sGSV to OM1/OM2); LLE EVH on 05/21/[address] Nichols
-
Date of Service: May 27, 2023
Objective Data
-
PT 17.9 Sec (11.4-14.6) H 05/21/23 16:55
INR 1.45 05/21/23 16:55
APTT 29.4 Sec (23.4-35.0) 05/21/23 16:55
Vital Signs
Vital Signs
Temp Pulse Resp BP Pulse Ox
98.6 F 63 16 130/54 91
05/26/23 23:43 05/26/23 23:43 05/26/23 23:43 05/26/23 23:43 05/26/23 23:43
CT Intake/Output/Weight
05/26/23 05/26/23 05/27/23
06:59 18:59 06:59
Intake Total 1585 5 250 / 250
Balance 158 / 1934 250 / 250
SaO2: 91
Physical Exam
-
General: Awake and AOx3
Cardiovascular: Regular rate & rhythm, No Murmurs and No Rub
Respiratory: Decreased Breath Sounds (few crackles at bases. No wheeze)
Sternum: Stable
Incision: Clean and Intact (small amount serosang fluid on gauze dressing noted. )
Extremities: Other (trace edema hands b/l, 2+ edema lower extremities b/l)
Data Reviewed
-
Lab Results: Results Reviewed
Medications: Active Meds Reviewed
Chest X-Ray: Report Reviewed and Image Reviewed
ECG: Report Reviewed and Image Reviewed
--- NOTE | 2023-05-27 07:30 | SUR.PHASEI ---
Assumed care of patient from plant operator/shift supervisor RN. AAO x 3, states he's very tired this am. No CP or SOB noted. A fib on monitor. 60-70. 2 L NC 92%. Abdomen soft and non tender, appetite good. Voiding spontaneously. Surgical sites AUBRIE, Distal
portion of sternal incision weeping serosanguineous drainage noted. No edema appreciated. Pulses palpable.
[2023-05-27 07:43] LABS: Glucose - Point of Care 232 mg/dl (70-99)
[2023-05-27] MEDS: LANTUS 0.400000000000000022 UNITS SC (07:54)
[2023-05-27] MEDS: NOVOLOG FLEXPEN-MODERATE RESISTANCE 3 UNITS SC ×2 (07:55→12:18)
[2023-05-27] MEDS: NOVOLOG FLEXPEN 9 UNITS SC ×3 (07:55→17:18)
[2023-05-27] MEDS: FARXIGA 10 MG PO (07:57)
[2023-05-27] MEDS: PROTONIX 40 MG PO (07:57)
[2023-05-27] MEDS: GLUCOPHAGE 1000 MG PO (07:57)
[2023-05-27] MEDS: MUCINEX 600 MG PO ×2 (07:57→19:53)
[2023-05-27] MEDS: ELIQUIS 5 MG PO ×2 (07:57→19:53)
[2023-05-27] MEDS: NEURONTIN 300 MG PO ×3 (07:57→21:38)
[2023-05-27] MEDS: LOW STRENGTH ASPIRIN 81 MG PO (07:57)
[2023-05-27] MEDS: CARDIZEM CD 360 MG PO (07:57)
[2023-05-27] MEDS: PACERONE 200 MG PO ×2 (07:58→19:54)
[2023-05-27] MEDS: SENOKOT-S PO (08:00)
--- NOTE | 2023-05-27 08:02 | PN.DE.MGMTRT ---
Insulin Management
- -
05/25/2023: Diabetes Management Consult
67 year old male who presented for elective CABG, and is now POD #4 s/p CABG X4.
PMH that includes: HTN, HLD, Multivessel CAD (with history of stenting) DVT/PE s/p IVC filter on Eliquis, CKD, Venous insufficiency, hepatic steatosis, GERD, chronic back pain and T2DM, A1C 6.3%, Cr 2.5-->1.5 today
Pt was taking Ozempic 1mg on Thursday, Actos 30mg daily, Metformin 100mg daily, Tresiba 72 units daily and NovoLog 6 units AC. He was initially on the CC glycemic protocol and was transitioned to SQ insulin and Metformin over the weekend.
Pt states he takes his Lantus in the morning and was having good glucose control prior to surgery.
His premeal glucose trended up to 308 and has remained >200. FBG was 146 this AM, premeal range 186 to 266, requiring 2-10 units of corrective.
Luan started him on NovoLog 6 units AC and increased his Lantus dose from 20 units to 50 units @ HS.
Will stop HS Lantus, as pt takes it in the morning. Start Lantus 40 units in am, 1st dose now. Agree with AC NovoLog 6 units.
Discuss starting Farxiga, pt was amenable, states his Nephrology had discussed it with him and was planning to start it (verified co-pay $10/month for 30 day sup), will start Farxiga 10 mg daily, 1st dose now. Cont Metformin 1000 mg daily. Change to
moderate corrective insulin with meals
Discussed Actos and instructed pt not to take any further doses at home.
05/26/2023 Diabetes Management Follow up
Patient regimen yesterday 6 units novolog AC with Lantus 40 units in AM. Required 3 units corrective insulin with meals. Will increase AC novolog to 9 units. Will continue lantus 40 units, Farxiga 10 mg daily and metformin 1000 mg daily. Glucose
improved this AM 137 fasting.
05/27/2023 Diabetes Management Follow up
Glucose yesterday slightly improved with AC novolog 9 units. HS glucose 209. Cr elevated today, 1.9, egfr 37.95. Will HOLD metformin. Will continue Farxiga 10 mg daily and novolog 9 units AC. Will increase AM Lantus to 45 units. Will follow.
Diabetes History
- -
Type of Diabetes: 2 requiring insulin
Pre-Admission Diabetes Regimen
05/27/23
04:07
Creatinine 1.9 H
Lab Results
Hemoglobin A1c 6.3 % (4.0-5.6) H 05/05/23 08:19
Insulin Pump Settings
IP Diabetes Regimen
05/26/23 05/26/23 05/26/23
14:15 17:24 21:54
Glucose
POC Glucose 194 H 174 H 209 H
05/27/23 05/27/23
04:07 07:40
Glucose 155 H
POC Glucose 232 H
Meal type: Dinner
Meal type: Lunch
Meal type: Breakfast
Amount consumed: 100%
Amount consumed: 90%
Amount consumed: 100%
Patient Education
--- NOTE | 2023-05-27 08:11 | W.PN.CD ---
Today's Communication / Plan
-
- Hold lasix, farxiga, Metformin
- Transfuse
- Continue Amiodarone and dilt.
Impression / Plan
-
Assessment/Plan:
67 y/o male (patient of Dr. Chen) with HTN, HLD, DM2, DVT/PE on Eliquis, and Multivessel CAD (with history of stenting) who is now s/ CABG.
Multivessel CAD:
-CABG x 4 (GILLIAN to D1, ALVARO to R PLB, sGSV to OM1/OM2) with Dr. Nichols 05/21/23
-Tubes out and doing well POD#6
-Continue ASA and statin.
AF:
-Postop AF (no hx) vs paroxysmal AF.
- CHADSVasc score is 3 (age, HTN, Vascular disease)
-intermittent and rate controlled - On dilt and Amiodarone.
-Would continue Amiodarone (200bid on discharge) for 4-6 wks then plan for 6 months of Amiodarone 200 mg QD
-Continue Eliquis (which he is on as outpt due to DVT). ASA to continue (? 3-6mo). No need for plavix
JEWEL
- Cr rising to 1.9 today - was 1.6 on 05/26.
- Anemia may be playing a role. Transfuse PRBC.
- Bleeding?
- s/p diuresis
- appears volume up but may be intravascularly dry
- Hold lasix today, may resume in AM
- Hold piogliazone, Lisinopril and HCTZ for now and resume in a week based on labs
- Discontinue Metformin.
HTN:
-Cardizem CD 240 qd started along with Amiodarone
-May have some levated BP with holding the BP meds but would need for few days to recover from renal injury.
HLD:
-Continue high-dose rosuvastatin.
DM:
-follow
Hx DVT/PE:
-hx of removed IVC filter per OP chart
-Back on eliquis
Subjective:
Feels groggy today. No chest pain.
Physical Exam
Vital Signs/Labs
Vital Signs
Temp Pulse Resp BP Pulse Ox
98.5 F 62 16 131/56 91
05/27/23 03:54 05/27/23 03:54 05/27/23 03:54 05/27/23 03:54 05/27/23 03:54
05/26/23 05/27/23 05/28/23
06:59 06:59 06:59
Actual Weight 121.3 kg 122.5 kg
05/27/23 04:07
05/27/23 04:07
PT 17.9 Sec (11.4-14.6) H 05/21/23 16:55
INR 1.45 05/21/23 16:55
APTT 29.4 Sec (23.4-35.0) 05/21/23 16:55
Magnesium 2.7 mg/dl (1.6-2.3) H 05/26/23 03:21
Physical Exam
Constitutional: No acute distress and Comfortable
EENT: Anicteric and Moist mucous membranes
Cardiovascular: Rhythm & rate is regular, JVD pressure is normal, Systolic murmur absent and Pedal edema present
Respiratory: Lungs clear to auscul. and Wheeze Absent
Neuro/Psych: Alert, Oriented and AO x 3
Other: Skin
Data Reviewed
-
Date of Service: May 27, 2023
Medical Decision Making: Reviewed Test Results, Tests Ordered, Independent Historian Assessment and Test Interpretation
EKG: Tracing Personally Visualized and interpreted
Echo: Tracing Personally Visualized and interpreted
Labs: Labs Reviewed by me
Old Records: Reviewed
Critical Care Time (in minutes): 31
[2023-05-27] MEDS: LANTUS 0.0500000000000000028 UNITS SC (09:26)
[2023-05-27] MEDS: KCL PO (09:27)
--- NOTE | 2023-05-27 09:30 | PTCARENOTE ---
Type and screen obtained, 1 unit of PRBC's received from blood bank and transfusion initiated.
--- NOTE | 2023-05-27 10:11 | PN.CDI ---
Addendum entered and electronically signed by Prashant Ruiz PA-C 05/27/23 16:17:
postop respiratory status following surgery
acute postop pulmonary insufficiency
Original Note:
CDI
- -
CDI:
Physician Documentation Request
Admit Date: 05/21/23 05:30
Dear Doctor Simone,
Please review the following and provide your response in the progress notes.
Clinical Indicators:
Extubated 05/22
05/26/23 16:25 (created 05/26/23 17:04) - Patient Care Note
#SaO2 to 87% on RA, 1lnc applied w/SaO2 @ 92%, patient dozing in chair.
05/26/23 20:30 (created 05/26/23 22:45) - Patient Care Note
#Pt on 2 L NC. POX 90-92%.
05/27/23 00:05 (created 05/27/23 00:05) - Patient Care Note
#Pt on 4 L NC - not 2 L NC.
05/27/23 04:15 (created 05/27/23 04:25) - Patient Care Note
#Maintained on 4 L NC. POX 93%.
PN, 05/27
#POD#6 s/p CABG x 4
#Rate controlled AF this AM (2nd episode). No major other overnight events.
#Attempted O2 wean yesterday w/ desat to high 80s w/ ambulation.
#- Attempt to wean O2 again today; OOB/IS/ambulate later
#-mild hypoxia- pOx 88-91% on 2L and 94% on 4L (desaturation noted with sleep)
#-Non-smoker
#-Acute postop atelectasis/pleural effusion/respirator insufficiency
Please clarify which of the following accurately represents the patient's respiratory status following surgery:
Acute post op pulmonary insufficiency
Acute hypoxic respiratory failure
Acute post op respiratory insufficiency(breath holding and other abnormalities of breathing)
Hypoxia
Other
Additional information for Pulmonary Insufficiency:
Consider when patients require [facility] oxygen therapy postoperatively
Weaned off oxygen initially then requiring supplemental oxygen
No other definitive diagnosis to support the need for oxygen (COPD exac, CHF etc.)
Unable to wean from vent
When criteria for respiratory failure not present
May extend stay or require additional resources; may need home O2
Additional information for Respiratory Failure:
Recognized criteria for Respiratory Failure (Source: [facility] Hospitalist Feb 2013)
Symptoms Indicate:
1. Tachypnea, SOB, dyspnea 1. Type as:
2. Use of accessory muscles a. Hypoxic
3. Pallor or cyanosis b. Hypercapnic
4. Anxiety or restlessness 2. If due to procedure or due to another cause
5. Unable to speak in full sentences
Supplemental O2 of > 40% Intubation is not required
Use of terms such as suspected, likely, concern for, or probable (associated with a specific diagnosis that is being evaluated, monitored, or treated as if it exists) are acceptable and can be coded in the inpatient setting, when documented at the
time of discharge.
Thank you,
Estefany Busby RN BSN CCDS
CDI Specialist
please contact via tiger text
Please use your independent medical judgment in providing your response.
--- NOTE | 2023-05-27 11:55 | CM ---
CM following for DC planning needs.
Met w/ patient at bedside. He reports that he is feeling well. He is anticipating walking later today.
DC plan remains for home w/ CT Transitional Care RN.
CM will cont. to follow.
[2023-05-27 12:17] LABS: Glucose - Point of Care 244 mg/dl (70-99)
--- NOTE | 2023-05-27 12:55 | PTCARENOTE ---
Resting in chair. 1 unit PRBC transfused w/o issue. States hes feeling better than this morning. VSS. Assessment otherwise unchanged from prior. Will monitor
--- NOTE | 2023-05-27 15:34 | PTCARENOTE ---
Ambulated in hallway with RN. NO JENKINS noted with ambulation. Pulse ox upon sitting back in chair. was 92% on room air. Pt states he feels better this afternoon, less tired. Denies pain at present. VSS , assessment unchanged from prior.
[2023-05-27] MEDS: CRESTOR 40 MG PO (16:15)
[2023-05-27] MEDS: TYLENOL 650 MG PO ×2 (16:17→21:39)
[2023-05-27 17:16] LABS: Glucose - Point of Care 181 mg/dl (70-99)
[2023-05-27] MEDS: NOVOLOG FLEXPEN-MODERATE RESISTANCE 1 UNITS SC (17:18)
[2023-05-27] MEDS: SENOKOT-S 1 TABLET PO (19:53)
--- NOTE | 2023-05-27 20:00 | PTCARENOTE ---
assumed care of pt from previous RN. pt A&Ox4. pt ambulated 200' in hallway w/ RN. no c/o SOB. A fib on tele-monitor. HR 60s-70s. POX 95% on RA post ambulation. pt voiding in bathroom. palpable peripheral pulses. + edema noted in LUE and b/l legs.
PIV flushed, intact. see worklist for complete nursing assessment, interventions, VS, and I&Os.
[2023-05-27 21:36] LABS: Glucose - Point of Care 190 mg/dl (70-99)
[2023-05-27] MEDS: FLEXERIL 5 MG PO (21:39)
--- NOTE | 2023-05-28 00:06 | PTCARENOTE ---
assessment remains unchanged. SR w/ 1st degree AVB on tele-monitor. POX <90% on RA. pt placed on 4 L NC. POX up to 91-92%. no c/o pain at this time.
[2023-05-28 03:58] VITALS: BP 131/62
--- NOTE | 2023-05-28 04:01 | PTCARENOTE ---
assessment remains unchanged. SR w/ 1st degree AVB on tele-monitor. HR 70s. POX 94% on 2 L NC. AM labs collected and sent. no c/o pain at this time.
[2023-05-28 04:11] LABS: Hematocrit 23.5 % (39.0-52.0); Hemoglobin 8.1 g/dL (13.0-18.0); Mean Corp Hgb Conc. 34.5 g/dL (33.0-37.0); Mean Corpuscular Hgb 32.3 pg (27.0-31.0); Mean Corpuscular Volume 93.6 fL (80.0-94.0); Mean Platelet Volume 10.5 fL (7.4-10.4); Platelet Count 241 10^3/uL (130-400); Red Blood Cell Count 2.51 10^6/uL (4.70-6.10); Red Cell Dist. Width 13.4 % (11.5-14.5)
[2023-05-28 04:36] LABS: Blood Urea Nitrogen 56 mg/dl (9-20); Calcium 8.3 mg/dl (8.4-10.2); Carbon Dioxide 30 mmol/L (22-30); Chloride 96 mmol/L (98-107); Estimated Creatinine Clearance 52 ml/min; Glucose 131 mg/dl (70-99); Potassium 4.6 mmol/L (3.5-5.1); Sodium 131 mmol/L (135-145); eGFR 37.95
--- NOTE | 2023-05-28 04:59 | W.PN.CT ---
Addendum entered and electronically signed by Keyur Nichols MD 05/28/23 07:38:
I saw and examined the patient.
The PA's note was reviewed and I agree with the note.
Comment:
POD#7 s/p CABG x 4
No major overnight events. Tm 98.7. 71 sinus. 139/52. 95% RA. No gtts. No drains. UO: spontaneous, adequate. Tolerating PO. Neuro: intact. 8.0>8.1<241; 56/1.9. Na 131.
- ASA/Eliquis, No BB (Hx of intolerance), cardizem, amiodarone, statin
- OOB/IS/ambulate
- D/C home today
Original Note:
Today's Communication / Plan
-
-pod #7
-feels better after 1 pRBC transfusion yesterday
-converted spontaneously to nsr @ 11 pm (approx 18 hrs of a-fib)- on Cardizem 360 qd, Amio 200 bid and Eliquis
-noted Cardiology recommendation to continue Amio 200 bid for 4-6 wks, then 200 daily for 6 mos
-follow Cr- 1.9 today (1.9 on 05/27 and 1.6 preop)
-follow h/h- 8.1/23.5 today (7.5/21.4 on 05/27)
-LUE US: no DVT
-ambulate, encourage IS
-likely d/c home
Assessment / Plan
-
-mv-CAD- s/p CABG x 4 (GILLIAN to D1, ALVARO to R PLB, sGSV to OM1/OM2); LLE EVH on 05/21/[address] Nichols, pod #7
-POST-PHOEBE: Normal biventricular function w/o RWMA.� No sig valvular pathology
-CAD - s/p LAD and Diag stents in 2014 and 2016
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
-IVC reconstruction with stent
-HTN/HLD
-DM II (HgA1c 6.3)
-CKD 3a (Cr 1.6 preop)
-Non-smoker
-Intolerance of BB (dizziness)
-Pre-existing 1st degree AVB
-Acute postop blood loss anemia - no active bleed, no transfusion
-Acute postop thrombocytopenia
-Acute postop atelectasis/pleural effusion/respirator insufficiency
-Acute postop small right apical ptx-resolved
-JEWEL in setting of CKD
-Acute postop hyponatremia
-Acute postop controlled rate a-fib x2 episodes- a-fib 50s on 05/27 for ~18 hrs - converted spontaneously to nsr
-Acute postop 2:1 AVB
Discussed patient care with: Nursing and Care Team
Subjective
Procedure
- s/p CABG x 4 (GILLIAN to D1, ALVARO to R PLB, sGSV to OM1/OM2); LLE EVH on 05/21/[address] Nichols
-
Date of Service: May 28, 2023
Objective Data
-
PT 17.9 Sec (11.4-14.6) H 05/21/23 16:55
INR 1.45 05/21/23 16:55
APTT 29.4 Sec (23.4-35.0) 05/21/23 16:55
Vital Signs
Vital Signs
Temp Pulse Resp BP Pulse Ox
98.2 F 73 20 139/52 92
05/28/23 00:00 05/28/23 00:00 05/28/23 00:00 05/27/23 23:55 05/28/23 00:00
CT Intake/Output/Weight
05/27/23 05/27/23 05/28/23
06:59 18:59 06:59
Intake Total 360 / 360
Balance 360 / 360
SaO2: 92
Physical Exam
-
General: Awake and AOx3
Cardiovascular: Regular rate & rhythm, No Murmurs and No Rub
Respiratory: Decreased Breath Sounds
Sternum: Stable
Incision: Clean, Dry and Dressing Intact
Extremities: Edema +1
Data Reviewed
-
Lab Results: Results Reviewed
Medications: Active Meds Reviewed
Chest X-Ray: Report Reviewed and Image Reviewed
ECG: Report Reviewed and Image Reviewed
[2023-05-28 06:00] VITALS: BMI 34.8
[2023-05-28 06:44] LABS: Glucose - Point of Care 150 mg/dl (70-99)
[2023-05-28] MEDS: LANTUS 0.450000000000000011 UNITS SC (07:32)
[2023-05-28] MEDS: NOVOLOG FLEXPEN 9 UNITS SC (07:32)
[2023-05-28] MEDS: NOVOLOG FLEXPEN-MODERATE RESISTANCE 1 UNITS SC (07:33)
--- NOTE | 2023-05-28 08:00 | PTCARENOTE ---
Assumed care of patient from shiftman RN. AAO x 3 REsting in the chair. Denies pain. SR on monitor with PVC's. Room air 92-93%. Harsh non productive cough at times, using IS to 1000. Abdomen wnl, appetite good. Voiding w/o issue. Trace to
plus 1 general anasarca noted. Pulses palpable. Surgical sites well approximated and scabbed. Plan for day discussed with pt and care team during am rounds
[2023-05-28 08:20] VITALS: BP 124/61
[2023-05-28] MEDS: MUCINEX 600 MG PO (08:20)
[2023-05-28] MEDS: NEURONTIN 300 MG PO (08:20)
[2023-05-28] MEDS: PROTONIX 40 MG PO (08:20)
[2023-05-28] MEDS: LOW STRENGTH ASPIRIN 81 MG PO (08:20)
[2023-05-28] MEDS: CARDIZEM CD 360 MG PO (08:20)
[2023-05-28] MEDS: SENOKOT-S PO (08:21)
[2023-05-28] MEDS: PACERONE 200 MG PO (08:21)
[2023-05-28] MEDS: ELIQUIS 5 MG PO (08:21)
[2023-05-28] MEDS: FARXIGA 10 MG PO (08:21)
[2023-05-28] MEDS: LASIX 40 MG PO (08:26)
--- NOTE | 2023-05-28 08:43 | PN.DE.MGMTRT ---
Insulin Management
- -
05/25/2023: Diabetes Management Consult
67 year old male who presented for elective CABG, and is now POD #4 s/p CABG X4.
PMH that includes: HTN, HLD, Multivessel CAD (with history of stenting) DVT/PE s/p IVC filter on Eliquis, CKD, Venous insufficiency, hepatic steatosis, GERD, chronic back pain and T2DM, A1C 6.3%, Cr 2.5-->1.5 today
Pt was taking Ozempic 1mg on Thursday, Actos 30mg daily, Metformin 100mg daily, Tresiba 72 units daily and NovoLog 6 units AC. He was initially on the CC glycemic protocol and was transitioned to SQ insulin and Metformin over the weekend.
Pt states he takes his Lantus in the morning and was having good glucose control prior to surgery.
His premeal glucose trended up to 308 and has remained >200. FBG was 146 this AM, premeal range 186 to 266, requiring 2-10 units of corrective.
Luan started him on NovoLog 6 units AC and increased his Lantus dose from 20 units to 50 units @ HS.
Will stop HS Lantus, as pt takes it in the morning. Start Lantus 40 units in am, 1st dose now. Agree with AC NovoLog 6 units.
Discuss starting Farxiga, pt was amenable, states his Nephrology had discussed it with him and was planning to start it (verified co-pay $10/month for 30 day sup), will start Farxiga 10 mg daily, 1st dose now. Cont Metformin 1000 mg daily. Change to
moderate corrective insulin with meals
Discussed Actos and instructed pt not to take any further doses at home.
05/26/2023 Diabetes Management Follow up
Patient regimen yesterday 6 units novolog AC with Lantus 40 units in AM. Required 3 units corrective insulin with meals. Will increase AC novolog to 9 units. Will continue lantus 40 units, Farxiga 10 mg daily and metformin 1000 mg daily. Glucose
improved this AM 137 fasting.
05/27/2023 Diabetes Management Follow up
Glucose yesterday slightly improved with AC novolog 9 units. HS glucose 209. Cr elevated today, 1.9, egfr 37.95. Will HOLD metformin. Will continue Farxiga 10 mg daily and novolog 9 units AC. Will increase AM Lantus to 45 units. Will follow.
05/28/2023 Diabetes Management Follow up
POD 7 s/p cabg x4. Lantus dose increased to 45 units yesterday, glucose has trended down, fasting this AM 131. Pre meal glucose remained elevated requiring corrective insulin. Will increase AC novolog to 10 units with corrective insulin. CR
remains elevated, 1.9, will continue to HOLD metformin. If discharged today should resume Tresiba at 45 units with novolog 10 units AC with Farxiga 10 mg daily.
Diabetes History
- -
Type of Diabetes: 2 requiring insulin
Pre-Admission Diabetes Regimen
05/28/23
03:55
Creatinine 1.9 H
Lab Results
Hemoglobin A1c 6.3 % (4.0-5.6) H 05/05/23 08:19
Insulin Pump Settings
IP Diabetes Regimen
05/27/23 05/27/23 05/27/23
12:16 17:15 21:35
Glucose
POC Glucose 244 H 181 H 190 H
05/28/23 05/28/23
03:55 06:43
Glucose 131 H
POC Glucose 150 H
Meal type: Breakfast
Amount consumed: 100%
Patient Education
[2023-05-28 10:02] VITALS: BP 135/64
[2023-05-28 10:11] VITALS: BP 160/71
[2023-05-28 10:13] VITALS: BP 170/61
--- NOTE | 2023-05-28 10:29 | W.DCSUMMARY ---
Discharge Summary
Discharge Data
Date of Admission: 05/21/23
Date of Discharge: 05/28/23
-
Pending Results: No
Hospital Course
Primary care physician:
Dr. Sarika Chandler
Outpatient bookmobile librarian:
Dr. Valentin Chen
Inpatient consultants:
Plant Manager, diabetes management, [facility]
Procedures:
1. Coronary artery bypass grafting x 4
Primary Diagnosis:
1. Multivessel coronary artery disease status post multiple prior stents
Secondary Diagnoses:
1. Obesity
2. Hypertension
3. Hyperlipidemia
4. Chronic kidney disease stage III
5. Diabetes mellitus type 2
6. History of bilateral lower extremity deep vein thrombosis/pulmonary embolism
HPI:
67-year-old male with significant past medical history of coronary disease with prior stents presented to [facility] on 05/21 for elective coronary artery bypass surgery with Dr. Nichols.
Hospital course:
On 05/21 patient was electively admitted for CABG with Dr. Nichols. He returned to the CVICU from the CV OR on Precedex, insulin, and Cardene infusions. Postoperative ABG found him to be in respiratory acidosis and respiratory rate on ventilator was
increased from 12-16. Precedex was weaned off and patient was extubated on postop day 0. However, patient was started on Levophed overnight for blood pressure support. On 05/22 postop day #1 patient was weaned off Levophed. [place] catheter and
arterial line were removed and patient was started on aspirin and Plavix. He was given Lasix 40 mg IV and was continued on his insulin drip due to his history of diabetes and insulin requirements. On 05/23 postop day #2 patient was transitioned off
insulin infusion and started on metformin along with sliding scale insulin and Lantus. He was found to be hypertensive with systolic blood pressures in the 140s to 150s range and was started on Norvasc. Chest x-ray that day showed a tiny right
pneumothorax and chest tubes were kept in place. On 05/24 postop day #3 right pneumothorax removed chest tubes were removed along with right IJ cordis. Later in the day he converted Introl atrial fibs and was treated with IV magnesium and
amlodipine was switched to Cardizem for heart rate control due to the patient's prior beta-candice intolerance. On 05/25 postop day #4 Cardizem dose was increased from 120 mg to 240. He was given p.o. Lasix and two-view chest x-ray was performed.
Plavix was discontinued and he was started on Eliquis. On postop day #5, patient continued to be hypertensive and Cardizem dose was increased to 360 mg. Wires were cut. Left upper extremity was reported to have edema so an ultrasound was
performed to rule out DVTs. For diabetes management patient was started on NovoLog 9 units with meals, Lantus was increased to 40 units every morning, Farxiga 10 mg, and metformin at 1000 mg a day. On 05/27 postop day #6 patient was given 1 unit of
packed red blood cells for hemoglobin of 7.5. Oxygen was weaned off and creatinine was 1.9. Due to the elevated creatinine metformin was placed back on hold. He converted back into atrial fibrillation rate controlled at 4 AM but converted back to
sinus rhythm without intervention. On 06/17 patient was deemed stable for discharge his diabetes regimen was adjusted to resume Tresiba 45 units nightly, NovoLog 10 units with meals, and Farxiga 10 mg daily. Metformin continues to be on hold due to
his creatinine levels. Patient's weight is still elevated so after discussion with cardiology patient will be sent home with 20 mg of oral Lasix for 7 days with repeat blood work in 5 days.
Home medication changes:
Started:
Acetaminophen 650 mg p.o. every 6 hours as needed for mild to moderate pain
Amiodarone 200 mg p.o. twice a day for 30 days and then 200 mg daily until seen by bookmobile librarian
Farxiga 10 mg p.o. daily for diabetes management
Diltiazem 360 mg daily for heart rate and blood pressure control
Furosemide 20 mg p.o. daily for 7 days for fluid retention
NovoLog insulin 10 units subcutaneous with meals
Changed:
Insulin degludec (Tresiba) 72 units subcutaneous changed to 45 units subcutaneously daily
Stopped:
Coenzyme Q 10 200 mg daily was discontinued; do not restart until seen by a doctor
Fenofibric acid 135 mg was discontinued
Insulin NovoLog 6 units with meals was discontinued because your dose was increased to 10 units with meals
Isosorbide mononitrate 30 mg p.o. daily was discontinued due to revascularization
Lisinopril�hydrochlorothiazide 20-12.5 mg p.o. twice daily was discontinued per cardiology due to different antihypertensive medications
Metformin 1000 mg p.o. daily was discontinued due to poor kidney function
Nifedipine 90 mg p.o. daily was discontinued per cardiology; do not restart until a discussion with a bookmobile librarian
Ozempic 1 mg/dose subcutaneous was discontinued (do not restart until seen by your primary care doctor
Pioglitazone 30mg Po daily was discontinued due to your chronic kidney disease; Do not restart unless directed by a doctor
Discharge Plan
-
Patient Disposition: Home (Routine Discharge)
Discharge Diagnosis/Procedures: coronary artery disease/coronary artery bypass grafting x 4
Condition: Good
Diet: Low Cholesterol, Low Sodium and Diabetic, Carb Controlled
Activity: No strenuous activity
Driving Restrictions: Not until seen by your Dr
Bathing Restrictions: OK to Shower
Blood Work: BMP is 5 days
Other Services: Cardiac Rehab
Specialty Instructions: Weigh Daily- Call MD for wt gain/loss 3 lbs overnight/5 lbs in 1 week
Stop these medications:: isosorbide
nifedipine
nitroglycerin tabs.
pioglitazone
lisinopril-hydrochlorothiazide
Activity Restrictions/Additional Instructions:
ACTIVITY:
-No strenuous activity: no heavy lifting, pushing, pulling anything over 15 pounds for one month
-continue to use stairs as tolerated
DRIVING RESTRICTIONS:
-No driving for one month or until approved by your surgeon
WOUND CARE:
-Shower daily. Use soap & water.
-No lotions, creams or powders on incision area.
DIET:
-continue a low fat/low cholesterol diet.
-IF you are diabetic, continue carb controlled diet.
CARDIAC REHAB:
-Please make appointment to start in 5-6 weeks with your local hospital program. (See Cardiac Rehabilitation Discharge Booklet).
SPECIALTY INSTRUCTIONS:
-Weigh yourself daily. Call your physician for any weight gain/loss of 3 lbs overnight or 5 lbs in one week.
-REPORT any clicking noise or uneven appearance of your sternum to your surgeon immediately.
-If you smoke, you are instructed to quit. The [facility] smoking hotline phone number is [phone]
Referrals:
CT Transitional Care Nurse [Outside] (The Cardiothoracic Transitional Care Nurse will call you to set up a visit in 1-2 days.)
Sarika Chandler PA [Family Provider] -
Valentin Chen, DO [Non-Admitting Privileges] - 06/30/23 10:40 am
Keyur Nichols MD [Active] - 06/23/23 2:00 pm
Prescriptions:
New
diltiazem HCl 180 mg Capsule,Extended Release 24hr
360 mg PO DAILY Qty: 60 2RF
dapagliflozin propanediol [Farxiga] 10 mg Tablet
10 mg PO DAILY Qty: 30 3RF
acetaminophen 325 mg Tablet
650 mg PO Q6HPRN PRN (Reason: mild pain,headache,temp >101F ) Qty: 0 0RF
amiodarone [Pacerone] 200 mg Tablet
200 mg PO BID Qty: 60 0RF
amiodarone 200 mg tablet
200 mg PO DAILY Qty: 90 0RF
Rx Instructions:
Start 30 days after discharge
furosemide [Lasix] 20 mg tablet
20 mg PO DAILY Qty: 7 0RF
Rx Instructions:
Take daily for 7 days, then stop
insulin aspart U-100 [Novolog FlexPen U-100 Insulin] 100 unit/mL (3 mL) Insulin Pen
10 unit SC AC Qty: 15 0RF
Continued
magnesium 250 MG tablet
250 mg PO DAILY
Centrum Silver Men 1 EACH tablet
1 ea PO DAILY
vitamin E 400 unit Tablet
800 unit PO DAILY
rosuvastatin 40 mg Tablet
40 mg PO QPM
Eliquis 5 mg Tablet
5 mg PO BID
aspirin 81 MG tablet,delayed release (DR/EC)
81 mg PO DAILY
pantoprazole 40 MG tablet,delayed release (DR/EC)
40 mg PO DAILY
Changed
insulin degludec [Tresiba FlexTouch U-100] 100 UNIT/ML insulin pen
45 unit SQ DAILY Qty: 0 0RF
Discontinued
fenofibric acid (choline) 135 MG capsule,delayed release(DR/EC)
135 mg PO DAILY
nitroglycerin 0.4 MG tablet, sublingual
0.4 mg sublingual [id number] PRN (Reason: chest pain) Qty: 30 3RF
pioglitazone 30 MG tablet
30 mg PO DAILY
coenzyme Q10 [Co Q-10] 200 MG capsule
200 mg PO DAILY
nifedipine 90 mg Tablet Extended Release 24hr
90 mg PO DAILY Qty: 0
insulin aspart U-100 [Novolog FlexPen U-100 Insulin] 100 unit/mL (3 mL) Insulin Pen
6 unit SC AC Qty: 0
lisinopril-hydrochlorothiazide 20-12.5 mg Tablet
1 tab PO BID
Ozempic 1 mg/dose (4 mg/3 mL) Pen Injector
1 mg SC HAIRSTON
isosorbide mononitrate 30 MG tablet extended release 24 hr
30 mg PO DAILY
metformin 1,000 MG tablet
1,000 mg PO DAILY
Discharge Orders:
Discharge Patient (As Directed); Ordered 05/28/23
Ordered By: Antoinette Barbour
Care Plan Goals
Care Plan Goals:
Problem: Readiness for enhanced knowledge related to diagnosis and treatment plan
Goal: Understand your diagnosis and treatment plan needs, including medications if applicable.
Instructions: Know your diagnosis, underlying causes and treatment plan options, including medications if applicable. Consult with your health care team to learn about your diagnosis and treatment plan, including medications if applicable.
[2023-05-28 10:42] VITALS: BP 135/64; BP 160/71; PULSE 85; O2SAT 93; O2SAT 96
[2023-05-28] MEDS: NOVOLOG FLEXPEN 10 UNITS SC (12:43)
[2023-05-28] MEDS: NOVOLOG FLEXPEN-MODERATE RESISTANCE SC (12:43)
--- NOTE | 2023-05-28 12:44 | CM ---
Noted that patient has been Rx'ed Farxiga.
Call to patient's pharm plan, . Estimated cost of Farxiga is $50/mo.
Free 30 d coupon + $10/mo coupon placed in chart.
Met w/ patient at bedside. Updated him on estimated cost.
--- NOTE | 2023-05-28 12:45 | CM ---
CM following for DC planning needs.
Met w/ patient at bedside. Patient is preparing for DC today, feels well.
DC plan is for home w/ CT Transitional Care RN. No other needs identified.
[2023-05-28 12:46] LABS: Glucose - Point of Care 143 mg/dl (70-99)
--- NOTE | 2023-05-28 13:48 | PTCARENOTE ---
Telemetry pack removed. INT removed. PT assisted with showering utilizing shower chair. tolerated w/o issue. Dry dressing applied to distal portion of sternal wound for drainage. Discharge instructions reviewed by RN with patient, and son.
Questions answered. Pt left with family, wheeled to car by volunteer.
== END 2023-05-28 14:00 | disposition home or self-care (01) | DRG 235 ==
LOC: CVICU 05:30
PROVIDERS: Clinical Nurse Specialist Acute Care; Nurse Practitioner; Physician Assistant Medical; Physician Assistant Surgical; ADMITTING PHYSICIAN Thoracic Surgery (Cardiothoracic Vascular Surgery); CONSULT PHYSICIAN Internal Medicine Critical Care Medicine; FAMILY PHYSICIAN Physician Assistant
PROC: 5A1221Z Performance of Cardiac Output, Continuous (ICD-10-PCS; 2023-05-21)
PROC: B24BZZ4 Ultrasonography of Heart with Aorta, Transesophageal (ICD-10-PCS; 2023-05-21)
PROC: 0211093 Bypass Coronary Artery, Two Arteries from Coronary Artery with Autologous Venous Tissue, Open Approach (ICD-10-PCS; 2023-05-21)
PROC: 02100Z8 Bypass Coronary Artery, One Artery from Right Internal Mammary, Open Approach (ICD-10-PCS; 2023-05-21)
PROC: 06BQ4ZZ Excision of Left Saphenous Vein, Percutaneous Endoscopic Approach (ICD-10-PCS; 2023-05-21)
PROC: 02100Z9 Bypass Coronary Artery, One Artery from Left Internal Mammary, Open Approach (ICD-10-PCS; 2023-05-21)
PROC: 30233N1 Transfusion of Nonautologous Red Blood Cells into Peripheral Vein, Percutaneous Approach (ICD-10-PCS; 2023-05-27)
DX: I25.10 Atherosclerotic heart disease of native coronary artery without angina pectoris (principal); J95.1 Acute pulmonary insufficiency following thoracic surgery; I82.531 Chronic embolism and thrombosis of right popliteal vein; I82.511 Chronic embolism and thrombosis of right femoral vein; J93.9 Pneumothorax, unspecified; J98.11 Atelectasis; D62 Acute posthemorrhagic anemia; N17.9 Acute kidney failure, unspecified; E87.1 Hypo-osmolality and hyponatremia; J90 Pleural effusion, not elsewhere classified; K76.0 Fatty (change of) liver, not elsewhere classified; K21.9 Gastro-esophageal reflux disease without esophagitis; M54.9 Dorsalgia, unspecified; G89.29 Other chronic pain; I12.9 Hypertensive chronic kidney disease with stage 1 through stage 4 chronic kidney disease, or unspecified chronic kidney disease; D69.6 Thrombocytopenia, unspecified; E66.9 Obesity, unspecified; I48.91 Unspecified atrial fibrillation; N18.31 Chronic kidney disease, stage 3a; I44.0 Atrioventricular block, first degree; E11.22 Type 2 diabetes mellitus with diabetic chronic kidney disease; I87.2 Venous insufficiency (chronic) (peripheral); E78.00 Pure hypercholesterolemia, unspecified; Z86.718 Personal history of other venous thrombosis and embolism; Z80.1 Family history of malignant neoplasm of trachea, bronchus and lung; Z82.49 Family history of ischemic heart disease and other diseases of the circulatory system; Z88.8 Allergy status to other drugs, medicaments and biological substances; Z79.4 Long term (current) use of insulin; Z79.84 Long term (current) use of oral hypoglycemic drugs; Z79.01 Long term (current) use of anticoagulants; Z79.82 Long term (current) use of aspirin; Z68.34 Body mass index [BMI] 34.0-34.9, adult; Z86.711 Personal history of pulmonary embolism; Z95.5 Presence of coronary angioplasty implant and graft
CPT/HCPCS: 36415; 71045; 71046; 71250; 80048; 80053; 81003; 82248; 82330; 82565; 82805; 82810; 82947; 82962; 83036; 83735; 84132; 84302; 84520; 85014; 85018; 85025; 85027; 85049; 85610; 85730; 86850; 86900; 86901; 86920; 87070; 93005; 93312; 93320; 93325; 93880; 93970; 93971; 94002; 94010; C1713; P9016; P9045